=== PATIENT | female | born 1990 | race Caucasian/White ===

== ENCOUNTER → 2023-03-10 | Outpatient (CLI) | payer MEDICAID, SELFPAY ==
[2023-03-10 15:57] LABS: Estradiol 42.9 pg/mL; Follicle Stimulating Hormone 6.9 mIU/mL; Luteinizing Hormone 4.4 mIU/mL; Thyroid Stim Hormone (TSH) 2.05 uIU/mL (0.358-3.74)
== END | disposition home or self-care (01) ==
LOC: PAVLAB 14:51
PROVIDERS: Referring Provider Obstetrics & Gynecology; Visit Provider Obstetrics & Gynecology
DX: N93.9 Abnormal uterine and vaginal bleeding, unspecified (principal)
CPT/HCPCS: 36415; 82627; 82670; 83001; 83002; 84443; 82626

== ENCOUNTER → 2023-04-06 | Outpatient (CLI) | payer MEDICAID, SELFPAY ==
--- NOTE | 2023-04-06 08:57 | BI_ITS ---
MAMMOGRAPHY - BILATERAL DIAGNOSTIC REASON FOR EXAM: Female, 33 years old. Left axillary mass getting larger PERTINENT HISTORY: Aunt with breast cancer. TECHNIQUE: Digital examination. Mediolateral oblique (MLO) and craniocaudad (CC) views of both breasts were obtained, along with 3-D tomosynthesis. CAD: CAD was performed on this study. COMPARISON: None. Baseline examination. FINDINGS: Breast Composition: The breasts are heterogeneously dense, which may obscure small masses. There are no dominant masses or suspicious calcifications. No other significant abnormalities are identified. No mammographic evidence of abnormality. However, because patient has an enlarging left axillary mass, further evaluation of this mass with ultrasound is recommended. The right breast needs no specific follow-up BI/DIAG MAMM W/CAD, BILAT IMPRESSION: Further ultrasonographic evaluation recommended, as described above. Recall Side: Right Breast ASSESSMENT CATEGORY: BIRADS Category 0: Incomplete. Need additional imaging evaluation. A letter regarding these results will be sent to the patient by the facility within 30 days. FOLLOW UP RECOMMENDATION: Ultrasound Recommended. (I) Approximately 10% of breast cancers are not detected by mammography. A normal mammogram should not delay biopsy of a clinically suspicious abnormality. Electronically Signed: Fidel Spivey MD at 9:42 EDT ,
--- NOTE | 2023-04-06 08:57 | US_ITS ---
STUDY: ULTRASOUND BREAST - LEFT REASON FOR EXAM: Female, 33 years old. Palpable lump TECHNIQUE: Axial and longitudinal images of the LEFT breast were performed with a high resolution ultrasound transducer. # OF IMAGES: 22 COMPARISON: None. FINDINGS: LEFT Breast: Focused ultrasound of the left axilla demonstrates a lymph node that corresponds to the palpable lump measuring 1.5 x 0.8 x 0.8 cm. This is physiologic, and likely reactive. Since it is less than 1 cm in short axis dimension, no specific follow-up or intervention is needed. No suspicious enlarged bulky lymphadenopathy, no hyperemia or venous fluid collection. US/Breast Limited Unilateral IMPRESSION: Palpable lump corresponds to a physiologic lymph node. No suspicious sonographic findings ASSESSMENT CATEGORY: BIRADS Category 1: Negative. A letter regarding these results will be sent to the patient by the facility within 30 days. Electronically Signed: Fidel Spivey MD at 11:53 EDT ,
== END | disposition home or self-care (01) ==
LOC: OPBI 08:55
PROVIDERS: Referring Provider Obstetrics & Gynecology; Visit Provider Obstetrics & Gynecology
DX: R22.32 Localized swelling, mass and lump, left upper limb (principal)
CPT/HCPCS: 77062; 76642; 77066; G0279

== ENCOUNTER → 2023-07-25 | Outpatient (CLI) | payer MEDICAID, SELFPAY ==
[2023-07-27 22:06] LABS: Chlamydia By Nucleic Acid AMP Negative (Negative); Gonococcus By Nucleic Acid AMP Negative (Negative)
[2023-07-29 15:08] LABS: HPV APTIMA, High Risk Negative (Negative)
== END | disposition home or self-care (01) ==
LOC: LABSPEC 14:06
PROVIDERS: Referring Provider Registered Nurse; Visit Provider Registered Nurse
DX: Z34.90 Encounter for supervision of normal pregnancy, unspecified, unspecified trimester (principal)
CPT/HCPCS: 87086; 87088; 87491; 87591; 87624; 88175; G0145

== ENCOUNTER → 2023-08-05 | Outpatient (CLI) | payer MEDICAID, SELFPAY ==
[2023-08-05 11:21] LABS: Absolute Lymphocyte Count 2.61 X10^3/uL (0.83-4.51); Absolute Neutrophil Count 3.3 X10^3/uL (2.0-7.7); Basophil# 0.02 X10^3/uL; Basophil% 0.3 % (0-1); Eosinophil# 0.08 X10^3/uL; Eosinophils% 1.3 % (0-5); Hematocrit 39.3 % (37-47); Hemoglobin 13.2 g/dL (12.0-15.0); Lymphocyte # 2.61 X10^3/ul (0.83-4.51); Mean Corp Hgb Conc 33.6 g/dL (32-36); Mean Corpuscular Hgb 30.4 pg (27.0-32.0); Mean Corpuscular Volume 90.6 fL (81-99); Mean Platelet Vol. 9.9 fl (6.2-12.0); Monocyte# 0.38 X10^3/uL; NRBC Flagged by Analyzer 0 % (0-5); Neutrophil # 3.25 X10^3/uL (2.7-7.7); Neutrophil % 51.1 % (47-70); Platelet Count 191 K/mm3 (150-450); RBC Distribution Width CV 11.7 % (11.6-14.6); RBC Distribution Width SD 38.6 fl (35.1-43.9); Red Blood Count 4.34 M/mm3 (4.2-5.4); White Blood Count 6.4 K/mm3 (4.4-11.0)
[2023-08-05 11:40] LABS: NATERA MAILED SPECIMEN
[2023-08-05 12:20] LABS: HIV - WCH Non-Reactive (Nonreactive); Hepatitis B Surface Antigen Non-Reactive (Nonreactive); Hepatitis C Antibody Non-Reactive (Nonreactive); Rubella IgG Reactive (Nonreactive); Syphilis Antibodies Non-reactive
[2023-08-05 14:24] LABS: Hemoglobin A1c 4.3 % (3.8-5.6)
== END | disposition home or self-care (01) ==
LOC: LAB 10:37
PROVIDERS: Referring Provider Registered Nurse; Visit Provider Registered Nurse
DX: O99.210 Obesity complicating pregnancy, unspecified trimester (principal); Z3A.00 Weeks of gestation of pregnancy not specified
CPT/HCPCS: 36415; 83036; 85025; 86703; 86762; 86780; 86803; 86850; 86900; 86901; 87340

== ENCOUNTER → 2023-12-14 | Outpatient (CLI) | payer MEDICAID, SELFPAY ==
[2023-12-14 11:24] LABS: Absolute Lymphocyte Count 2.04 X10^3/uL (0.83-4.51); Absolute Neutrophil Count 5.4 X10^3/uL (2.0-7.7); Basophil# 0.02 X10^3/uL; Basophil% 0.3 % (0-1); Eosinophil# 0.05 X10^3/uL; Eosinophils% 0.6 % (0-5); Hematocrit 34.9 % (37-47); Hemoglobin 11.6 g/dL (12.0-15.0); Lymphocyte # 2.04 X10^3/ul (0.83-4.51); Lymphocyte % 25.6 % (19-41); Mean Corp Hgb Conc 33.2 g/dL (32-36); Mean Corpuscular Hgb 29.8 pg (27.0-32.0); Mean Corpuscular Volume 89.7 fL (81-99); Mean Platelet Vol. 10.1 fl (6.2-12.0); Monocyte# 0.45 X10^3/uL; Monocyte% 5.7 % (0-10); NRBC Flagged by Analyzer 0 % (0-5); Neutrophil # 5.35 X10^3/uL (2.7-7.7); Neutrophil % 67.2 % (47-70); Platelet Count 164 K/mm3 (150-450); RBC Distribution Width CV 12.3 % (11.6-14.6); Red Blood Count 3.89 M/mm3 (4.2-5.4)
[2023-12-14 12:11] LABS: Glucose Challenge Gest 1H 50g 114 mg/dL (70-140)
[2023-12-14 12:41] LABS: HIV - WCH Non-Reactive (Nonreactive); Syphilis Antibodies Non-reactive
--- OUTSIDE RECORDS SUMMARY | 2023-12-14 21:09 | XMS RPT_ITS | CCD ---
Author Name Unknown Address [address] [facility] [address] [place] [address] Organization [facility] Care Team Providers Care Crew Scheduler Name Role Phone Emory Massey CNP Primary Care Provider 1( [phone] Eveline Velasco MD Primary Care Provider Juwan Lyons Attending Unavailable Juwan Lyons Primary Care Unavailable Juwan Lyons Referring Unavailable Unavailable Primary Care Provider UnavailCHRISTINA Burks Referring Unavailable EMORY MASSEY Primary Care Unavailable EMORY MASSEY Primary Care Unavailable EMORY MASSEY Primary Care Unavailable JUWAN LYONS Attending Unavailable JUWAN LYONS Attending Unavailable HI POWER Referring Unavailab CANDELARIA Yu Primary Care Unavailable DUNCAN MARTINEZ Attending Unavailable Allergies Allergy Classification Reported Allergen(s) Allergy Type Date of Onset Reaction(s) Facility (5 sources) Azithromycin; Translations: [AZITHROMYCIN] Drug Allergy 11-06-2013 [facility] (5 sources) Cefaclor; Translations: [CEFACLOR] Drug Allergy 11-18-2005 [facility] Work Phone: (1 source) Clindamycin Drug Allergy 06-14-2019 [facility] Work Phone: (1 source) Clindamycin Drug Allergy 09-20-2022 [facility] Medications Current Medications Medication Drug Class(es) Dates Sig (Normalized) Sig (Original) doxycycline monohydrate 100 mg oral tablet (1 source) Tetracycline-cla ss Drug Start: 09-20-2022 End: 09-27-2022 take 1 tablet by mouth twice daily doxycycline monohydrate 100 mg tablet Indications: Sinobronchitis Take 1 tablet by mouth twice daily for 7 days. 14 tablet 0 09/20/2022 09/27/2022 Active Completed/Discontinued Medications Medication Drug Class(es) Dates Sig (Normalized) Sig (Original) ALPRAZolam (2 sources) Benzodiazepine ALPRAZOLAM (XANA X ORAL) Take by mouth. 0 Active Problems Active Problems Problem Classification Problem Date Documented Da te Episodic/Chronic Anxiety disorders (2 sources) Anxiety; Translations: [Anxiety disorder, unspecified] Onset: 04-14-2012 04-14-2012 Chronic Menstrual disorders (5 sources) Irregular periods; Translations: [Irregular menstruation, unspecified] Onset: 07-28-2022 Chronic Other acquired deformities (2 sources) Scoliosis deformity of spine; Translations: [Other forms of scoliosis, site unspecified] 03-20-2008 Chronic Other injuries and conditions due to external causes (1 source) Injury of left foot; Translations: [Unspecified injury of left foot, initial encounter] Episodic Other upper respiratory infections (1 source) Chronic sinusitis; Translations: [Chronic sinusitis, unspecified] Chronic Past or Other Problems Problem Classification Problem Date Documented Date Episodic/Chronic Allergic reactions (2 sources) Urticaria; Translations: [Urticaria, unspecified] Onset: 09-25-2007 09-25-2007 Episodic Cardiac dysrhythmias (1 source) Tachycardia; Translations: [Tachycardia, unspecified] Onset: 12-22-2017 Resolved: 06-07-2019 06-07-2019 Episodic Other complications of (1 source) Supervision of with other poor reproductive or obstetric history, unspecified trimester; Translations: [ with other poor obstetric history] Onset: 05-20-2016 Resolved: 06-07-2019 06-07-2019 Episodic Other complications of (1 source) H/O: ; Translations: [Supervision of with other poor reproductive or obstetric history, unspecified trimester] Onset: 05-20-2016 Resolved: 06-07-2019 06-07-2019 Episodic Other injuries and conditions due to external causes (1 source) Unspecified injury of left foot, initial encounter; Translations: [Foot injury, left, initial encounter] Onset: 03-29-2022 Episodic Other and delivery including normal (2 sources) Vaginal delivery; Translations: [Encounter for full-term uncomplicated delivery] Onset: 11-19-2016 Resolved: 06-07-2019 06-07-2019 Episodic Syncope (1 source) Near syncope; Translations: [Syncope and collapse] Onset: 12-22-2017 Resolved: 06-07-2019 06-07-2019 Episodic Results Test Name Value Interpretation Reference Range Facil ity Vital Signs Date Time Vital Sign Value Performing Clinician Abner zarco 09-20-2022 09:14-0500 Body temperature 99.61 [degF] Zaid Godinez HOME WEATHERIZING WORKER.CLINICAL DATA ASSISTANT Work Phone: [facility] 09-20-2022 09:14-0500 Body weight 78.47 kg Zaid Godinez HOME WEATHERIZING WORKER.CLINICAL DATA ASSISTANT Work Phone: [facility] 09-20-2022 09:14-0500 Diastolic blood pressure 72 mm[Hg] Zaid Godinez HOME WEATHERIZING WORKER.CLINICAL DATA ASSISTANT Work Phone: [facility] 09-20-2022 09:14-0500 Heart rate 105 /min Zaid Godinez HOME WEATHERIZING WORKER.CLINICAL DATA ASSISTANT Work Phone: [facility] 09-20-2022 09:14-0500 Respiratory rate 20 /min Zaid Godinez HOME WEATHERIZING WORKER.CLINICAL DATA ASSISTANT Work Phone: [facility] 09-20-2022 09:14-0500 SaO2% (BldA) [Mass fraction] 99 % Zaid Godinez HOME WEATHERIZING WORKER.CLINICAL DATA ASSISTANT Work Phone: [facility] 09-20-2022 09:14-0500 Systolic blood pressure 102 mm[Hg] Zaid Godinez HOME WEATHERIZING WORKER.CLINICAL DATA ASSISTANT Work Phone: [facility] 03-29-2022 16:31-0400 Body temperature 98.49 [degF] Christina Harvey HOME WEATHERIZING WORKER.CLINICAL DATA ASSISTANT Work Phone: [facility] 03-29-2022 16:31-0400 Body weight 80.2 kg Christina Harvey HOME WEATHERIZING WORKER.CLINICAL DATA ASSISTANT Work Phone: [facility] 03-29-2022 16:31-0400 Diastolic blood pressure 82 mm[Hg] Christina Harvey HOME WEATHERIZING WORKER.CLINICAL DATA ASSISTANT Work Phone: [facility] 03-29-2022 16:31-0400 Heart rate 95 /min Christina Harvey HOME WEATHERIZING WORKER.CLINICAL DATA ASSISTANT Work Phone: [facility] 03-29-2022 16:31-0400 Respiratory rate 20 /min Christina Harvey HOME WEATHERIZING WORKER.CLINICAL DATA ASSISTANT Work Phone: [facility] 03-29-2022 16:31-0400 SaO2% (BldA) [Mass fraction] 98 % Christina Harvey HOME WEATHERIZING WORKER.CLINICAL DATA ASSISTANT Work Phone: [facility] 03-29-2022 16:31-0400 Systolic blood pressure 124 mm[Hg] [facility] HOME WEATHERIZING WORKER.CLINICAL DATA ASSISTANT Work Phone: [facility] Encounters Encounter Date Encounter Type Care Provider Facility Start: 10-11-2023 End: 10-11-2023 [facility] Start: 10-25-2022 End: 10-25-2022 ambulatory JUWAN LYONS [facility] Start: 09-20-2022 End: 09-20-2022 [facility] Facility[facility] Start: 09-20-2022 End: 09-20-2022 Patient encounter procedure Zaidlacie Godinez HOME WEATHERIZING WORKER.CLINICAL DATA ASSISTANT Work Phone: [facility] Care Procedures Date Procedure Procedure Detail Performing Clinician Start: 10-25-2022 Follow-up visit Follow-up JUWAN LYONS Start: 07-28-2022 Assay of thyroid stimulating hormone tsh Juwan Lyons MD Work Phone: Start: 10-30-2018 Microscopic observat ion [Identifier] in Cervix by Cyto stain Juwan Lyons MD Work Phone: Plan of Treatment Date Care Activity Detail Author Start: 08-18-2022 End: 08-18-2022 Patient encounter procedure [facility] Start: 06-17-2022 Influenza vaccination [facility] Start: 05-17-2022 Influenza vaccination Flu vaccine (# 1) [facility] Start: 10-30-2021 Screening for malign ant neoplasm of cervix [facility] Start: 10-17-2021 DEPRESSION ASSESSMENT DEPRESSION ASS ESSMENT [facility] Start: 2020 HPV TESTING HPV TESTING [facility] Start: 2020 Screening for malign ant neoplasm of cervix HPV (without or with Pap) [facility] Start: 10-13-2016 DTaP/Tdap/Td vaccine (7 - Td or Tdap) DTaP/Tdap/Td vaccine (7 - Td or Tdap) [facility] Start: 10-13-2016 Urine microalbumin profile DTAP,TDAP,TD (7 - Td or Tdap) [facility] Start: 05-27-2016 PAP TESTING PAP TESTING [facility] Start: 2008 HEPATITIS C SCREENING HEPATITIS C SC REENING [facility] Start: 2008 HIV SCREENING HIV SCREENING [facility] Start: 2002 Adult depression screening assessment DEPRESSION SCREENING [facility] Start: 2002 Depression Screen Depression Screen [facility] Start: 1995 COVID-19 VACCINE (#1) COVID-19 VACCI NE (#1) [facility] Start: 1991 Varicella vaccine (1 of 2 - 2-dose childhood series) Varicella vaccine (1 of 2 - 2-dose childhood series) [facility] Start: 1990 COVID-19 Vaccine (#1) COVID-19 Vacci ne (#1) [facility] Immunizations Immunization Date Immunization Notes Care Provider Libra jose 10-13-2006 tetanus toxoid, reduced diphtheria toxoid, and acellular pertussis vaccine, adsorbed Christina Pendlebury HOME WEATHERIZING WORKER.[facility] Work Phone: [facility] Work Phone: 02-04-2003 hepatitis B vaccine, pediatric or pediatric/adolescent dosage Christina Pendlebury HOME WEATHERIZING WORKER.CLINICAL DATA ASSISTANT Work Phone: [facility] Work Phone: 07-05-2002 hepatitis B vaccine, pediatric or pediatric/adolescent dosage Christina Pendlebury HOME WEATHERIZING WORKER.CLINICAL DATA ASSISTANT Work Phone: [facility] Work Phone: 05-28-2002 hepatitis B vaccine, pediatric or pediatric/adolescent dosage Christina Pendlebury HOME WEATHERIZING WORKER.[facility] Work Phone: [facility] Work Phone: 05-28-2002 measles, mumps and rubella virus vaccine Christina Pendlebury HOME WEATHERIZING WORKER.[facility] Work Phone: [facility] Work Phone: 06-07-1994 diphtheria, tetanus toxoids and acellular pertussis vaccine Christina Pendlebury HOME WEATHERIZING WORKER.[facility] Work Phone: [facility] Work Phone: 06-07-1994 trivalent poliovirus vaccine, live, oral Christina Pendlebury HOME WEATHERIZING WORKER.[facility] Work Phone: [facility] Work Phone: 05-16-1992 diphtheria, tetanus toxoids and acellular pertussis vaccine Christina Pendlebury HOME WEATHERIZING WORKER.[facility] Work Phone: [facility] Work Phone: 05-16-1992 trivalent poliovirus vaccine, live, oral Christina Pendkorinbury HOME WEATHERIZING WORKER.[facility] Work Phone: [facility] Work Phone: 11-06-1991 haemophilus influenzae type b vaccine, HbOC conjugate [facility]adryan [facility] HOME WEATHERIZING WORKER.[facility] Work Phone: [facility] Work Phone: 08-10-1991 DTaP-Haemophilus influenzae type b conjugate vaccine [facility] HOME WEATHERIZING WORKER.[facility] Work Phone: [facility] Work Phone: 08-10-1991 measles, mumps and rubella virus vaccine Christina Sladelebury HOME WEATHERIZING WORKER.[facility] Work Phone: [facility] Work Phone: 04-26-1991 DTaP-Haemophilus influenzae type b conjugate vaccine Christinaadryan Sladelebury HOME WEATHERIZING WORKER.[facility] Work Phone: [facility] Work Phone: 04-26-1991 trivalent poliovirus vaccine, live, oral Christina Pendlebury HOME WEATHERIZING WORKER.[facility] Work Phone: [facility] Work Phone: 1990 DTaP-Haemophilus influenzae type b conjugate vaccine Christina Wes HOME WEATHERIZING WORKER.CLINICAL DATA ASSISTANT Work Phone: [facility] Work Phone: 1990 trivalent poliovirus vaccine, live, oral Christina Wes HOME WEATHERIZING WORKER.CLINICAL DATA ASSISTANT Work Phone: [facility] Work Phone: NEGATED: Highlighted row has not occurred!05-29-2018 measles, mumps and rubella virus vaccine Juwan Lyons MD Work Phone: [facility] NEGATED: Highlighted row has not occurred!05-29-2018 tetanus toxoid, reduced diphtheria toxoid, and acellular pertussis vaccine, adsorbed Juwan Lyons MD Work Phone: [facility] Work Phone: Payers Date Payer Category Payer Medicaid [employer] [employer] [id number] 2020-Present [phone] [address] [place] [address] Medicaid [id number] 2020 Medicaid [employer] [employer] [place] [employer] [employer] [id number] 2020-Present [phone] [place], [place] [id number] Medicaid [id number] 2020 Unknown [id number] 1990 Unknown [id number] 1990 Unknown [id number] Unknown Social History Date Type Detail Facility Start: 05-27-2011 End: 05-13-2016 Tobacco smoking status ARIS Never smoked tobacco [facility] Start: 03-29-2022 End: 09-20-2022 Alcohol intake Current drinker of alcohol (finding) [facility] Start: 11-06-2013 History SDOH Alcohol Comment Occassional [facility] Start: 1990 Sex Assigned At Not on file [facility] Start: 05-27-2011 End: 05-13-2016 Tobacco use and exposure Smokeless tobacco non-user [facility] Work Phone: Start: 07-28-2022 Alcohol intake Current non-dr trim setter helper of alcohol (finding) [facility] Work Phone: Start: 09-10-2022 End: 09-20-2022 Exposure to SARS-CoV-2 (event) Not sure [facility] Work Phone: Progress note 09-20-2022 Note Date & Type Note Facility 09-20-2022 Note HNO ID: [id number] Author: Zaid Godinez APRN.CLINICAL DATA ASSISTANT Service: ? Author Type: Nurse Practitioner Type: Progress Notes Filed: 09/20/2022 10:02 AM Note Text: Subjective HPI HPI Flavia Qiu is a 32 year old female who presents today for CC of cough, congestion. This started 2 weeks ago. Has tried otc medication without relief. Symptoms are worsened by nothing. Risk factors multiple sick exposures at home. Denies possibility of being . nonsmoker. .Patient presents with: Chest Congestion: Cough, ROCHA, fever x 2 weeks PAST MEDICAL HISTORY Diagnosis Date Anxiety 04/14/2012 Other kyphoscoliosis and scoliosis Panic attacks PAST SURGICAL HISTORY Procedure Laterality Date ADENOIDECTOMY PRIMARY Adenoidectomy TONSILLECTOMY PRIMARY/SECONDARY Tonsillectomy ALLERGIES Ceclor [Cefaclor], Clindamycin, and Zithromax [Azithromycin] MEDICATIONS predniSONE (DELTASONE) 20 mg tablet Take 2 tablets by mouth once daily for 5 days. doxycycline monohydrate 100 mg tablet Take 1 tablet by mouth twice daily for 7 days. amoxicillin (POLYMOX, AMOXIL) 500 mg capsule TAKE 1 CAPSULE BY MOUTH EVERY 8 HOURS UNTIL GONE citalopram hydrobromide (CELEXA ORAL) Take by mouth. (Patient not taking: Reported on 03/29/2022 ) triamcinolone acetonide (KENALOG) 0.1 % cream Apply 1 application to affected area three times daily. Apply sparingly to area for rash/itching. (Patient not taking: Reported on 01/09/2019 ) PROMETHAZINE HCL (PHENERGAN ORAL) Take by mouth. (Patient not taking: Reported on 03/29/2022 ) ALPRAZOLAM (XANAX ORAL) Take by mouth. (Patient not taking: Reported on 03/29/2022 ) gentamicin (GARAMYCIN) 0.3 % ophthalmic solution Use 1 Drop in the left eye every 4 hours. (Patient not taking: Reported on 03/29/2022 ) buPROPion XL 150 mg 24 hr tablet Take 150 mg by mouth once daily. (Patient not taking: Reported on 03/29/2022 ) Etonogestrel-Ethinyl Estradiol (NUVARING) 0.12-0.015 mg/24 hr vaginal ring Use 1 Each vaginally as directed. Insert vaginally and leave in place for 3 consecutive weeks, then remove for 1 week. (Patient not taking: Reported on 03/29/2022 ) LORazepam (ATIVAN) 0.5 mg Tab Take 1 tablet by mouth every 6 hours as needed. (Patient not taking: Reported on 03/29/2022) FAMILY HISTORY Problem Relation Age of Onset Emphysema Paternal Grandfather Diabetes Paternal Grandfather Cancer Father skin/ear Social History Tobacco Use Smoking status: Never Smokeless tobacco: Never Substance Use Topics Alcohol use: Yes Comment: Occassional Drug use: No Review of Systems Constitutional: Positive for chills, fever and malaise/fatigue. HENT: Positive for congestion and sore throat. Negative for ear pain and nosebleeds. Respiratory: Positive for cough. Negative for shortness of breath and wheezing. Cardiovascular: Negative for chest pain. Gastrointestinal: Negative for diarrhea and vomiting. Musculoskeletal: Negative for neck pain. Skin: Negative for itching and rash. Neurological: Positive for headaches. Objective Physical Exam Constitutional: General: She is not in acute distress. Appearance: She is not toxic-appearing or diaphoretic. HENT: Head: Normocephalic and atraumatic. Nose: Nose normal. Mouth/Throat: Pharynx: Uvula midline. No pharyngeal swelling, oropharyngeal exudate, posterior oropharyngeal erythema or uvula swelling. Eyes: General: Lids are normal. No scleral icterus. Right eye: No discharge. Left eye: No discharge. Conjunctiva/sclera: Conjunctivae normal. Pupils: Pupils are equal, round, and reactive to light. Neck: Trachea: Trachea normal. Cardiovascular: Rate and Rhythm: Normal rate and regular rhythm. Heart sounds: Normal heart sounds. Pulmonary: Effort: Pulmonary effort is normal. Breath sounds: Normal breath sounds. Musculoskeletal: Cervical back: Normal range of motion and neck supple. Lymphadenopathy: Cervical: No cervical adenopathy. Right cervical: No superficial cervical adenopathy. Left cervical: No superficial cervical adenopathy. Skin: Findings: No rash. Neurological: Mental Status: She is alert and oriented to person, place, and time. ASSESSMENT/PLAN: 1. Sinobronchitis - ICD9: 473.9, 490, ICD10: J32.9, J40 Start prednisone, take for 3-5 days if no better/worse fill/take atb rx. - Supportive care with plenty of fluids, rest, and analgesia prn. - Follow up in 3-5 days if symptoms persist or worsen. -If you experience chest pain/shortness of breath go to ER -declines flu/covid testing. - PREDNISONE 20 MG TABLET - DOXYCYCLINE MONOHYDRATE 100 MG TABLET Zaid Godinez APRN.[facility] History of Present illness Narrative 09-20-2022 Zaid Godinez APRN.[facility] - 09/20/2022 9:58 AM EST Note Date & Type Note Facility 09-20-2022 History of Presen t illness Narrative Subjective HPI HPI Flavia Qiu is a 32 year old female who presents today for CC of cough, congestion. This started 2 weeks ago. Has tried otc medication without relief. Symptoms are worsened by nothing. Risk factors multiple sick exposures at home. Denies possibility of being . nonsmoker. .Patient presents with: Chest Congestion: Cough, ROCHA, fever x 2 weeks PAST MEDICAL HISTORY Diagnosis Date Anxiety 04/14/2012 Other kyphoscoliosis and scoliosis Panic attacks PAST SURGICAL HISTORY Procedure Laterality Date ADENOIDECTOMY PRIMARY <AGE 12 age 6 Adenoidectomy TONSILLECTOMY PRIMARY/SECONDARY <AGE 12 age 6 Tonsillectomy ALLERGIES Ceclor [Cefaclor], Clindamycin, and Zithromax [Azithromycin] MEDICATIONS predniSONE (DELTASONE) 20 mg tablet Take 2 tablets by mouth once daily for 5 days. doxycycline monohydrate 100 mg tablet Take 1 tablet by mouth twice daily for 7 days. amoxicillin (POLYMOX, AMOXIL) 500 mg capsule TAKE 1 CAPSULE BY MOUTH EVERY 8 HOURS UNTIL GONE citalopram hydrobromide (CELEXA ORAL) Take by mouth. (Patient not taking: Reported on 03/29/2022 ) triamcinolone acetonide (KENALOG) 0.1 % cream Apply 1 application to affected area three times daily. Apply sparingly to area for rash/itching. (Patient not taking: Reported on 01/09/2019 ) PROMETHAZINE HCL (PHENERGAN ORAL) Take by mouth. (Patient not taking: Reported on 03/29/2022 ) ALPRAZOLAM (XANAX ORAL) Take by mouth. (Patient not taking: Reported on 03/29/2022 ) gentamicin (GARAMYCIN) 0.3 % ophthalmic solution Use 1 Drop in the left eye every 4 hours. (Patient not taking: Reported on 03/29/2022 ) buPROPion XL 150 mg 24 hr tablet Take 150 mg by mouth once daily. (Patient not taking: Reported on 03/29/2022 ) Etonogestrel-Ethinyl Estradiol (NUVARING) 0.12-0.015 mg/24 hr vaginal ring Use 1 Each vaginally as directed. Insert vaginally and leave in place for 3 consecutive weeks, then remove for 1 week. (Patient not taking: Reported on 03/29/2022 ) LORazepam (ATIVAN) 0.5 mg Tab Take 1 tablet by mouth every 6 hours as needed. (Patient not taking: Reported on 03/29/2022) FAMILY HISTORY Problem Relation Age of Onset Emphysema Paternal Grandfather Diabetes Paternal Grandfather Cancer Father skin/ear Social History Tobacco Use Smoking status: Never Smokeless tobacco: Never Substance Use Topics Alcohol use: Yes Comment: Occassional Drug use: No Review of Systems Constitutional: Positive for chills, fever and malaise/fatigue. HENT: Positive for congestion and sore throat. Negative for ear pain and nosebleeds. Respiratory: Positive for cough. Negative for shortness of breath and wheezing. Cardiovascular: Negative for chest pain. Gastrointestinal: Negative for diarrhea and vomiting. Musculoskeletal: Negative for neck pain. Skin: Negative for itching and rash. Neurological: Positive for headaches. Objective Physical Exam Constitutional: General: She is not in acute distress. Appearance: She is not toxic-appearing or diaphoretic. HENT: Head: Normocephalic and atraumatic. Nose: Nose normal. Mouth/Throat: Pharynx: Uvula midline. No pharyngeal swelling, oropharyngeal exudate, posterior oropharyngeal erythema or uvula swelling. Eyes: General: Lids are normal. No scleral icterus. Right eye: No discharge. Left eye: No discharge. Conjunctiva/sclera: Conjunctivae normal. Pupils: Pupils are equal, round, and reactive to light. Neck: Trachea: Trachea normal. Cardiovascular: Rate and Rhythm: Normal rate and regular rhythm. Heart sounds: Normal heart sounds. Pulmonary: Effort: Pulmonary effort is normal. Breath sounds: Normal breath sounds. Musculoskeletal: Cervical back: Normal range of motion and neck supple. Lymphadenopathy: Cervical: No cervical adenopathy. Right cervical: No superficial cervical adenopathy. Left cervical: No superficial cervical adenopathy. Skin: Findings: No rash. Neurological: Mental Status: She is alert and oriented to person, place, and time. ASSESSMENT/PLAN: 1. Sinobronchitis - ICD9: 473.9, 490, ICD10: J32.9, J40 Start prednisone, take for 3-5 days if no better/worse fill/take atb rx. - Supportive care with plenty of fluids, rest, and analgesia prn. - Follow up in 3-5 days if symptoms persist or worsen. -If you experience chest pain/shortness of breath go to ER -declines flu/covid testing. - PREDNISONE 20 MG TABLET - DOXYCYCLINE MONOHYDRATE 100 MG TABLET Zaid Godinez APRN.CLINICAL DATA ASSISTANT documented in this encounter [facility] Progress note 07-06-2022 Note Date & Type Note Facility 07-06-2022 Note HNO ID: [id number] Author: Simi Patel APRN.[facility] Service: ? Author Type: Nurse Practitioner Type: Progress Notes Filed: 07/06/2022 2:53 PM Note Text: This note was created using Dry Luber[employer]. Terry Qiu is a 32 year old female. 32 year old female Acute onset last night. Left breast Noted last night in shower. Left upper breast area Endorses a lump, painful and red. +warmth Denies breast feeding Denies trauma or injury Denies nipple drainage or inverted nipples. Denies PCP coverage. She is being seen by [facility], July 28 for routine exam. Don't want to wait if its something serious States that she recently shaved The history is provided by the patient. No denture processor was used. Rash This is a new problem. The current episode started yesterday. The problem is unchanged. Location: left breasdt. The rash is characterized by pain and redness. It is unknown if there was an exposure to a precipitant. Pertinent negatives include no anorexia, congestion, cough, diarrhea, eye pain, facial edema, fatigue, fever, joint pain, nail changes, rhinorrhea, shortness of breath, sore throat or vomiting. Past treatments include nothing. The treatment provided no relief. There is no history of allergies, asthma, eczema or varicella. PAST MEDICAL HISTORY Diagnosis Date Anxiety 04/14/2012 Other kyphoscoliosis and scoliosis Panic attacks PAST SURGICAL HISTORY Procedure Laterality Date ADENOIDECTOMY PRIMARY Adenoidectomy TONSILLECTOMY PRIMARY/SECONDARY Tonsillectomy ALLERGIES Ceclor [Cefaclor] and Zithromax [Azithromycin] MEDICATIONS doxycycline monohydrate 100 mg tablet Take 1 tablet by mouth twice daily for 5 days. amoxicillin (POLYMOX, AMOXIL) 500 mg capsule TAKE 1 CAPSULE BY MOUTH EVERY 8 HOURS UNTIL GONE citalopram hydrobromide (CELEXA ORAL) Take by mouth. (Patient not taking: Reported on 03/29/2022 ) triamcinolone acetonide (KENALOG) 0.1 % cream Apply 1 application to affected area three times daily. Apply sparingly to area for rash/itching. (Patient not taking: Reported on 01/09/2019 ) PROMETHAZINE HCL (PHENERGAN ORAL) Take by mouth. (Patient not taking: Reported on 03/29/2022 ) ALPRAZOLAM (XANAX ORAL) Take by mouth. (Patient not taking: Reported on 03/29/2022 ) gentamicin (GARAMYCIN) 0.3 % ophthalmic solution Use 1 Drop in the left eye every 4 hours. (Patient not taking: Reported on 03/29/2022 ) buPROPion XL 150 mg 24 hr tablet Take 150 mg by mouth once daily. (Patient not taking: Reported on 03/29/2022 ) Etonogestrel-Ethinyl Estradiol (NUVARING) 0.12-0.015 mg/24 hr vaginal ring Use 1 Each vaginally as directed. Insert vaginally and leave in place for 3 consecutive weeks, then remove for 1 week. (Patient not taking: Reported on 03/29/2022 ) LORazepam (ATIVAN) 0.5 mg Tab Take 1 tablet by mouth every 6 hours as needed. (Patient not taking: Reported on 03/29/2022) FAMILY HISTORY Problem Relation Age of Onset Emphysema Paternal Grandfather Diabetes Paternal Grandfather Cancer Father skin/ear Social History Tobacco Use Smoking status: Never Smokeless tobacco: Never Substance Use Topics Alcohol use: Yes Comment: Occassional Drug use: No Review of Systems Constitutional: Negative for fatigue and fever. HENT: Negative for congestion, rhinorrhea and sore throat. Eyes: Negative for pain. Respiratory: Negative for cough and shortness of breath. Cardiovascular: Negative for chest pain, palpitations and leg swelling. Gastrointestinal: Negative for anorexia, diarrhea and vomiting. Musculoskeletal: Negative for arthralgias, back pain, gait problem and joint pain. Skin: Positive for color change and rash. Negative for nail changes. Allergic/Immunologic: Negative for environmental allergies, food allergies and immunocompromised state. Neurological: Negative for dizziness and facial asymmetry. Hematological: Negative for adenopathy. Does not bruise/bleed easily. Psychiatric/Behavioral: Negative for agitation and behavioral problems. Objective BP 110/70 Pulse 80 Temp 37.3 ?C (99.2 ?F) Resp 16 Wt 77.6 kg (171 lb) LMP 01/29/2015 SpO2 98% BMI 31.03 kg/m? Physical Exam Vitals and nursing note reviewed. Constitutional: General: She is not in acute distress. Appearance: Normal appearance. She is normal weight. She is not ill-appearing, toxic-appearing or diaphoretic. HENT: Head: Normocephalic and atraumatic. Right Ear: Ear canal and external ear normal. Left Ear: Ear canal and external ear normal. Nose: Nose normal. No congestion or rhinorrhea. Mouth/Throat: Mouth: Mucous membranes are moist. Pharynx: No oropharyngeal exudate or posterior oropharyngeal erythema. Eyes: General: Right eye: No discharge. Left eye: No discharge. Extraocular Movements: Extraocular movements intact. Conjunctiva/sclera: Conjunctivae normal. Pupils: Pupils are equal, round, and (more content not included)... [facility] Progress note 03-29-2022 Note Date & Type Note Facility 03-29-2022 Note HNO ID: [id number] Author: RT Andrew(R) Service: ? Author Type: Reports Developer Type: Progress Notes Filed: 03/29/2022 4:59 PM Note Text: Radiology Service Progress Note PATIENT NAME: Flavia Qiu DATE OF SERVICE: March 29, 2022 TIME: 4:48 PM PATIENT IDENTITY VERIFICATION COMPLETED USING TWO (2) IDENTIFIERS: Name and Date of confirmed by patient verbally. FALL SCREENING: Has the patient had 2 falls in the last year or 1 fall with injury or currently using an Ambulatory Assistive Device (Walker, Cane, Wheelchair, Crutches, etc.)? No PATIENT GENDER DATA: Female. status: : No status: NO. PATIENT RELEVANT IMPLANT DATA REVIEWED: Yes RADIOLOGY DEPARTMENT: General X-ray: Exam(s) Completed: Lower Extremity X-Ray(s): Foot, Left PERIPHERAL IV DATA: Not applicable SIGNED BY: RT Andrew(R) March 29, 2022 4:48 PM [facility] Progress note 03-29-2022 Note Date & Type Note Facility 03-29-2022 Note HNO ID: [id number] Author: Christina Harvey APRN.CLINICAL DATA ASSISTANT Service: ? Author Type: Nurse Practitioner Type: Progress Notes Filed: 03/29/2022 5:16 PM Note Text: Subjective HPI Nontoxic-appearing female presents urgent care chief complaint left foot pain. Duration of symptoms 5 days. Associated symptoms left foot pain and swelling. Patient states she is third toe 5 days ago getting out of the shower. Presents today due to a consistent pain and increased swelling. Patient states she did go to [place] over the weekend where she did a lot of walking. Does not know if this exacerbated her injury. Presents today for evaluation. Has not use any OTC medications. Limited pain at rest increased pain with walking. No numbness no tingling no decreased sensation denies history of previous fractures or injuries. Denies chance of is not breast-feeding. Past medical history prescription medication use allergies reviewed. .Patient presents with: Pain (foot): L foot pain and swelling x5 days, stubbed toe PAST MEDICAL HISTORY Diagnosis Date - Anxiety 04/14/2012 - Other kyphoscoliosis and scoliosis - Panic attacks PAST SURGICAL HISTORY Procedure Laterality Date - ADENOIDECTOMY PRIMARY Adenoidectomy - TONSILLECTOMY PRIMARY/SECONDARY Tonsillectomy ALLERGIES Ceclor [Cefaclor] and Zithromax [Azithromycin] MEDICATIONS amoxicillin (POLYMOX, AMOXIL) 500 mg capsule TAKE 1 CAPSULE BY MOUTH EVERY 8 HOURS UNTIL GONE citalopram hydrobromide (CELEXA ORAL) Take by mouth. triamcinolone acetonide (KENALOG) 0.1 % cream Apply 1 application to affected area three times daily. Apply sparingly to area for rash/itching. PROMETHAZINE HCL (PHENERGAN ORAL) Take by mouth. ALPRAZOLAM (XANAX ORAL) Take by mouth. gentamicin (GARAMYCIN) 0.3 % ophthalmic solution Use 1 Drop in the left eye every 4 hours. buPROPion XL 150 mg 24 hr tablet Take 150 mg by mouth once daily. Etonogestrel-Ethinyl Estradiol (NUVARING) 0.12-0.015 mg/24 hr vaginal ring Use 1 Each vaginally as directed. Insert vaginally and leave in place for 3 consecutive weeks, then remove for 1 week. LORazepam (ATIVAN) 0.5 mg Tab Take 1 tablet by mouth every 6 hours as needed. FAMILY HISTORY Problem Relation Age of Onset - Emphysema Paternal Grandfather - Diabetes Paternal Grandfather - Cancer Father skin/ear Social History Tobacco Use - Smoking status: Never Smoker - Smokeless tobacco: Never Used Substance Use Topics - Alcohol use: Yes Comment: Occassional - Drug use: No BP 124/82 Pulse 95 Temp 36.9 ?C (98.5 ?F) Resp 20 Wt 80.2 kg (176 lb 12.8 oz) LMP 01/29/2015 SpO2 98% BMI 32.08 kg/m? Review of Systems Constitutional: Negative for chills, fever and malaise/fatigue. HENT: Negative for congestion, ear discharge, ear pain, sinus pain and sore throat. Eyes: Negative for blurred vision, pain, discharge and redness. Respiratory: Negative for cough, hemoptysis, sputum production, shortness of breath, wheezing and stridor. Cardiovascular: Negative for chest pain. Gastrointestinal: Negative for abdominal pain, diarrhea, nausea and vomiting. Musculoskeletal: Negative for myalgias. Skin: Negative for itching and rash. Neurological: Negative for dizziness and headaches. Objective Physical Exam Constitutional: General: She is not in acute distress. Appearance: She is not diaphoretic. HENT: Head: Normocephalic. Mouth/Throat: Mouth: Mucous membranes are moist. Pharynx: Oropharynx is clear. No oropharyngeal exudate or posterior oropharyngeal erythema. Eyes: Conjunctiva/sclera: Conjunctivae normal. Pupils: Pupils are equal, round, and reactive to light. Cardiovascular: Rate and Rhythm: Normal rate and regular rhythm. Heart sounds: Normal heart sounds. Pulmonary: Effort: Pulmonary effort is normal. No tachypnea, accessory muscle usage or respiratory distress. Breath sounds: Normal breath sounds. No stridor. Abdominal: Palpations: Abdomen is soft. Tenderness: There is no abdominal tenderness. Musculoskeletal: Cervical back: Normal range of motion and neck supple. No rigidity or tenderness. Left lower leg: Normal. Left ankle: Normal. Left Achilles Tendon: Normal. Left foot: Normal range of motion and normal capillary refill. Swelling, tenderness and bony tenderness present. No deformity or crepitus. Normal pulse. Comments: Pain with palpation over dorsal aspect of left foot. No breaks in skin. No erythema. Neurovascular intact. Lymphadenopathy: Cervical: No cervical adenopathy. Skin: General: Skin is warm and dry. Neurological: Mental Status: She is alert and oriented to person, place, and time. ASSESSMENT/PLAN: 1. Foot injury, left, initial encounter - ICD9: 959.7, ICD10: S99.922A - XR FOOT GENERAL 3V AP/LAT/OBL LEFT IMPRESSION: ? No radiographic evidence of acute osseous injury No fractures noted on x-ray. Suspicious of contusion/sprain conservat (more content not included)... [facility] History of Present illness Narrative 03-29-2022 Christina Harvey APRN.CLINICAL DATA ASSISTANT - 03/29/2022 4:44 PM EDT Note Date & Type Note Facility 03-29-2022 History of Presen t illness Narrative Subjective HPI Nontoxic-appearing female presents urgent care chief complaint left foot pain. Duration of symptoms 5 days. Associated symptoms left foot pain and swelling. Patient states she is third toe 5 days ago getting out of the shower. Presents today due to a consistent pain and increased swelling. Patient states she did go to [place] over the weekend where she did a lot of walking. Does not know if this exacerbated her injury. Presents today for evaluation. Has not use any OTC medications. Limited pain at rest increased pain with walking. No numbness no tingling no decreased sensation denies history of previous fractures or injuries. Denies chance of is not breast-feeding. Past medical history prescription medication use allergies reviewed. .Patient presents with: Pain (foot): L foot pain and swelling x5 days, stubbed toe PAST MEDICAL HISTORY Diagnosis Date Anxiety 04/14/2012 Other kyphoscoliosis and scoliosis Panic attacks PAST SURGICAL HISTORY Procedure Laterality Date ADENOIDECTOMY PRIMARY <AGE 12 age 6 Adenoidectomy TONSILLECTOMY PRIMARY/SECONDARY <AGE 12 age 6 Tonsillectomy ALLERGIES Ceclor [Cefaclor] and Zithromax [Azithromycin] MEDICATIONS amoxicillin (POLYMOX, AMOXIL) 500 mg capsule TAKE 1 CAPSULE BY MOUTH EVERY 8 HOURS UNTIL GONE citalopram hydrobromide (CELEXA ORAL) Take by mouth. triamcinolone acetonide (KENALOG) 0.1 % cream Apply 1 application to affected area three times daily. Apply sparingly to area for rash/itching. PROMETHAZINE HCL (PHENERGAN ORAL) Take by mouth. ALPRAZOLAM (XANAX ORAL) Take by mouth. gentamicin (GARAMYCIN) 0.3 % ophthalmic solution Use 1 Drop in the left eye every 4 hours. buPROPion XL 150 mg 24 hr tablet Take 150 mg by mouth once daily. Etonogestrel-Ethinyl Estradiol (NUVARING) 0.12-0.015 mg/24 hr vaginal ring Use 1 Each vaginally as directed. Insert vaginally and leave in place for 3 consecutive weeks, then remove for 1 week. LORazepam (ATIVAN) 0.5 mg Tab Take 1 tablet by mouth every 6 hours as needed. FAMILY HISTORY Problem Relation Age of Onset Emphysema Paternal Grandfather Diabetes Paternal Grandfather Cancer Father skin/ear Social History Tobacco Use Smoking status: Never Smoker Smokeless tobacco: Never Used Substance Use Topics Alcohol use: Yes Comment: Occassional Drug use: No BP 124/82 Pulse 95 Temp 36.9 C (98.5 F) Resp 20 Wt 80.2 kg (176 lb 12.8 oz) LMP 01/29/2015 SpO2 98% BMI 32.08 kg/m Review of Systems Constitutional: Negative for chills, fever and malaise/fatigue. HENT: Negative for congestion, ear discharge, ear pain, sinus pain and sore throat. Eyes: Negative for blurred vision, pain, discharge and redness. Respiratory: Negative for cough, hemoptysis, sputum production, shortness of breath, wheezing and stridor. Cardiovascular: Negative for chest pain. Gastrointestinal: Negative for abdominal pain, diarrhea, nausea and vomiting. Musculoskeletal: Negative for myalgias. Skin: Negative for itching and rash. Neurological: Negative for dizziness and headaches. Objective Physical Exam Constitutional: General: She is not in acute distress. Appearance: She is not diaphoretic. HENT: Head: Normocephalic. Mouth/Throat: Mouth: Mucous membranes are moist. Pharynx: Oropharynx is clear. No oropharyngeal exudate or posterior oropharyngeal erythema. Eyes: Conjunctiva/sclera: Conjunctivae normal. Pupils: Pupils are equal, round, and reactive to light. Cardiovascular: Rate and Rhythm: Normal rate and regular rhythm. Heart sounds: Normal heart sounds. Pulmonary: Effort: Pulmonary effort is normal. No tachypnea, accessory muscle usage or respiratory distress. Breath sounds: Normal breath sounds. No stridor. Abdominal: Palpations: Abdomen is soft. Tenderness: There is no abdominal tenderness. Musculoskeletal: Cervical back: Normal range of motion and neck supple. No rigidity or tenderness. Left lower leg: Normal. Left ankle: Normal. Left Achilles Tendon: Normal. Left foot: Normal range of motion and normal capillary refill. Swelling, tenderness and bony tenderness present. No deformity or crepitus. Normal pulse. Comments: Pain with palpation over dorsal aspect of left foot. No breaks in skin. No erythema. Neurovascular intact. Lymphadenopathy: Cervical: No cervical adenopathy. Skin: General: Skin is warm and dry. Neurological: Mental Status: She is alert and oriented to person, place, and time. ASSESSMENT/PLAN: 1. Foot injury, left, initial encounter - ICD9: 959.7, ICD10: S99.922A - XR FOOT GENERAL 3V AP/LAT/OBL LEFT IMPRESSION: No radiographic evidence of acute osseous injury No fractures noted on x-ray. Suspicious of contusion/sprain conservative treatment at this time. Patient was educated on supportive therapies. Patient will follow up with primary care provider as needed. Patient was instructed to immediately proceed to emergency room for any new, worsening, or symptoms lasting longer than anticipated. The patient's clinical presentation is otherwise unremarkable at this time. Based on exam and clinical finding, the patient is stable for discharge. Plan of care was discussed with patient. Patient verbalizes understanding and agrees to plan of care. This note was generated using Xer[employer] software. It may contain errors in wording, punctuation, or spelling. Christina Harvey APRN.REINA documented in this encounter [facility] Evaluation note Note Date & Type Note Facility documented in this encounter [facility] Evaluation note Note Date & Type Note [facility] Evaluation note Note Date & Type Note Facility documented in this encounter [facility] Reason for referral (narrative) Diagnostic Procedure Only (Urgent) - Closed Note Date & Type Note Facility Referral ID Status Reason Start Date Expiration Date V isits Requested Visits Authorized [id number] Closed Auto-Generate d Referral 03/29/2022 04/28/2023 1 1 [facility] Summary Purpose Family History No Family History Records FoundNo Family History Records FoundNo Family History Records FoundNo Family History Records FoundNo Family History Records Found Advance Directives No Advanced Directives Records FoundLatest Code Status on File Code Status Date Activated Date Inactivated Comments Full Code 05/28/2018 10:37 PM 05/30/2018 2:15 PM Full Code 05/28/2018 8:39 AM 05/28/2018 10:37 PM Full Code 11/19/2016 6:49 PM 11/21/2016 2:36 PM Full Code 11/19/2016 8:36 AM 11/19/2016 9:24 AM Full Code 11/19/2016 4:51 AM 11/19/2016 8:36 AM Additional Source Comments INFORMATION SOURCE (unrecogn ized section and content) DATE CREATED AUTHOR AUTHOR'S ORGANIZ ATION 08/09/2022 [facility] DATE CREATED AUTHOR AUTHOR'S ORGANIZ ATION 09/20/2022 [facility] DATE CREATED AUTHOR AUTHOR'S ORGANIZ ATION 10/31/2022 [facility] DATE CREATED AUTHOR AUTHOR'S ORGANIZ ATION 10/13/2023 [facility] Source Comments (unrecognize d section and content) In the event this informatio n is protected by the Federal Confidentiality of Alcohol and Drug Abuse Patient Records regulations: The Federal rules restrict any use of the information to criminally investigate or prosecute any alcohol or drug abuse patient.[facility] the event this information is protected by the Federal Confidentiality of Alcohol and Drug Abuse Patient Records regulations: The Federal rules restrict any use of the information to criminally investigate or prosecute any alcohol or drug abuse patient.[facility] Reason for Visit (unrecogniz ed section and content) Reason Comments Chest Congestion Cough, ROCHA, fever x 2 weeks Care Teams (unrecognized sec tion and content) Crew Scheduler Relationship Specialty Start Date End Date Eveline Velasco MD [address] [place] [address], [address] [place], [place] [id number] PCP - General 08/20/16 FOR RECORDS PERTAINING TO PATIENTS WHO ARE OR HAVE BEEN ENROLLED IN A CHEMICAL DEPENDENCY/SUBSTANCEABUSE PROGRAM, SOME INFORMATION MAY BE OMITTED. This clinical summary was aggregated from multiple sources. Caution should be exercised in using it in the provision of clinical care. This summary normalizes information from multiple sources, and as a consequence, information in this document may materially change the coding, format and clinical context of patient data. In addition, data may be omitted in some cases. CLINICAL DECISIONS SHOULD BE BASED ON THE PRIMARY CLINICAL RECORDS. [facility]. provides no warranty or guarantee of the accuracy or completeness of information in this document.
== END | disposition home or self-care (01) ==
PROVIDERS: Referring Provider Obstetrics & Gynecology; Visit Provider Obstetrics & Gynecology
DX: O09.92 Supervision of high risk pregnancy, unspecified, second trimester (principal); Z3A.00 Weeks of gestation of pregnancy not specified
CPT/HCPCS: 36415; 82950; 85025; 86703; 86780

== ENCOUNTER → 2024-02-01 | Outpatient (CLI) | payer MEDICAID, SELFPAY ==
--- NOTE | 2024-02-01 12:27 | US_ITS ---
STUDY: SECOND AND THIRD TRIMESTER OBSTETRICAL ULTRASOUND - LIMITED REASON FOR EXAM: Female, 33 years old, evaluate growth LMP: 05/24/2023 PRIOR ULTRASOUND: No relevant prior comparison study available TECHNIQUE: Transabdominal TECHNICAL QUALITY: Adequate. FINDINGS: There is a single intrauterine fetus. The fetus is in a cephalic presentation. There is demonstrated cardiac activity with a heart rate of 131 bpm. There is a normal amniotic fluid volume. The largest amniotic fluid pocket measures 7 cm. The amniotic fluid index (SABAS) is 14 cm. The placenta is anterior in location and is not low lying. There are Grade 2 placental changes. The cervix is not visualized. BIOMETRY: BPD: 9.3 cm: 37 weeks, 6 days HC: 33.8 cm: 38 weeks, 5 days AC: 33.4 cm: 37 weeks, 2 days FL: 7.1 cm: 36 weeks, 1 days Age by LMP: 36 weeks, 1 days. ALTHEA by LMP: 02/28/2024. age by current US: 37 weeks, 4 days. ALTHEA by current US: 02/18/2024. Estimated weight: 3155 grams, +/- 473 grams, 80 percentile. US/OB Limited With Biometrics IMPRESSION: Single live intrauterine fetus in cephalic presentation with an estimated gestational age of 37 weeks and 4 days. Electronically Signed: Jesus Bearden MD at 15:29 EDT ,
== END | disposition home or self-care (01) ==
LOC: OPUS 12:27
PROVIDERS: Referring Provider Obstetrics & Gynecology; Visit Provider Obstetrics & Gynecology
DX: O09.92 Supervision of high risk pregnancy, unspecified, second trimester (principal); Z3A.00 Weeks of gestation of pregnancy not specified
CPT/HCPCS: 76816

== ENCOUNTER → 2024-02-02 | Outpatient (CLI) | payer MEDICAID, SELFPAY | END | disposition home or self-care (01) | LOC: LABSPEC 16:44 | PROVIDERS: Referring Provider Obstetrics & Gynecology; Visit Provider Obstetrics & Gynecology | DX: O09.90 Supervision of high risk pregnancy, unspecified, unspecified trimester (principal); Z3A.00 Weeks of gestation of pregnancy not specified | CPT/HCPCS: 87077; 87081; 87186 ==

== ENCOUNTER 2024-02-16 17:24 | Inpatient (IN) | payer MEDICAID, SELFPAY ==
[2024-02-16] VITALS (12 sets, daily range): BP systolic 89–114; BP diastolic 61–74; PULSE 82–97; RESP 16–18; TEMP 36.5–36.8; O2SAT 95–97; BMI 34.5
--- NOTE | 2024-02-16 17:21 | HP.PCM.OB_ITS ---
HPI - General General Date of Admission: 02/16/24 HPI Narrative WILL QIU, is a 33 F who presents IAL 4 cm regular ctx no vb lof good fm Maternal Data Information ALTHEA Calculator Estimated Delivery Date Method Current WG Current Estimate 02/28/24 LMP (Certain) 38w 3d Other Estimates 02/28/24 Ultrasound #1 38w 3d PFSH PFS Medical History (Updated 02/16/24 @ 17:40 by Ama Asher) Abnormal uterine bleeding Anxiety Depression Hidradenitis suppurativa IUD (intrauterine device) in place Mass of axilla depression Pre-conception counseling Home Medications buspirone 10 mg tablet 10 mg PO BID see provid 06/16/23 [History Last Taken 01/16/24] sertraline 50 mg tablet (Zoloft) 150 mg PO DAILY see provider 06/16/23 [History Last Taken 02/15/24 21:00] docosahexaenoic acid 200 mg capsule ( DHA) 1 mg PO see provider 09/20/23 [History Last Taken 02/15/24 21:00] Allergy/AdvReac Type Severity Reaction Status Date / Time azithromycin Allergy Intermediate Hives Verified 02/16/24 19:31 [From Zithromax Z-Jhonatan] cefaclor [From Ceclor] Allergy Mild Hives Verified 02/16/24 19:31 clindamycin Allergy Mild Hives Verified 02/16/24 19:31 Family History Grandmother Diabetes Stomach cancer Grandfather Diabetes Aunt Breast cancer, Onset Age: 26 82 with MS Uncle Prostate cancer Surgical History S/P tonsillectomy S/P tympanoplasty Social History household members: spouse housing: house current occupational status: employed current occupation: [employer] current occupational exposures/hazards: Yes pets and animals: Yes history of recent travel: No sexually active: Yes Smoking Status: Never smoker alcohol intake: current details: occasionally - not while substance use type: does not use caffeine: Yes what type of physical activity do you participate in: weight training frequency: 3-4 times per week seatbelt use: always do you feel safe at home: Yes additional social history: spouse (boyfriend) Joey - [employer]. History 4 Elective abortions Hx Para 3 Spontaneous abortions 1 Hx # Term Pregnancies Ectopic pregnancies Hx # Pregnancies Multiple births # of living children 2 Past Pregnancies Del. Date Name GA/Weeks Outcome Route Bth Weight Infant Gen Labor Lgth Anesthesia Del Locatn Provider FOB 11/14/15 [place] (dec) live - full term [facility] 11/19/16 Michelle 38 live - full term 6#12 Female epid ural [place] 05/28/18 Robbie 39 live - full term 7 10 Female none [place] Delivery Date: 11/14/15 Last Updated by: Anya Friedman CNM oligo, iol. vaccum. 50 HR unsuccessful rescuscitation. rm 1 and 15. Delivery Date: 05/28/18 Last Updated by: Anya Friedman CNM IOL, lived an hour away pitocin Visit Details Expected Delivery Route/Plan Labor Preferences- CB/BF classes: [] labor support person: [] labor intervention preferences: pain management options preferred: [] cut cord/dad catch: [] : [] PP control planned: [] discussed possible routes of delivery and associated risks: [] special requests: [] Plans Covid status: [] Flu vaccine: [] Tdap vaccine: [] Rhogam: [] LARC form signed: [] Problem list reviewed and updated with the most current plan of care details and appropriate orders placed. Relevant counseling for the gestational age provided. Continue routine care and follow up unless otherwise noted in visit notes/problem list details OB Flowsheet Initial Weight: 162 lb Date -?-?-?-?-?-?-?-?-?-?-?-?- EGA Weight BP Urine Prot -?-?-?-?-?-?-?-?-?-?-?-?- Glucose FHR FuHt Pres Dilation -?-?-?-?-?-?-?-?-?-?-?-?- Effaced St Visit Note 07/25/23 -?-?-?-?-?-?-?-?-?-?-?-?- 8w 6d 162 lb 6 oz (+6 oz) 106/73 -?-?-?-?-?-?-?-?-?-?-?-?- 163 -?-?-?-?-?-?-?-?-?-?-?-?- LC- CRL con with LMP. desires nipt. bmi >30, hbga1c added to nob labs. on zoloft for anxiety for loss 8 years ago with son. 08/23/23 -?-?-?-?-?-?-?-?-?-?-?-?- 13w 0d 166 lb 2 oz (+4 lb 2 oz) 117/77 Negative -?-?-?-?-?-?-?-?-?-?-?-?- Negative 156 -?-?-?-?-?-?-?-?-?-?-?-?- JV- CRL consiste nt with established gestational age. doing overall very well. we disussed epidural difficulties in the past .wants to request myself for delivery due to very bad experience with loss in the past 09/20/23 -?-?-?-?-?-?-?-?-?-?-?-?- 17w 0d 170 lb 8 oz (+8 lb 8 oz) 118/72 Negative -?-?-?-?-?-?-?-?-?-?-?-?- Negative 155 -?-?-?-?-?-?-?-?-?-?-?-?- -No VB. Leticia arredondo. [facility] 10/11. Denies concerns 10/19/23 -?-?-?-?-?-?-?-?-?-?-?-?- 21w 1d 174 lb 8 oz (+12 lb 8 oz) 120/82 Negative -?-?-?-?-?-?-?-?-?-?-?-?- Negative 154 -?-?-?-?-?-?-?-?-?-?-?-?- MH-No VB, LOF. G ood FM. Nl anatomy US. Varicosity left leg-noted, nontender 11/14/23 -?-?-?-?-?-?-?-?-?-?-?-?- 24w 6d 178 lb (+16 lb) 118/68 Negative -?-?-?-?-?-?-?-?-?-?-?-?- Negative 142 -?-?-?-?-?-?-?-?-?-?-?-?- -No VB, LOF. Work in for dizzines-couple of days ago. Better today. reviewed food/fluid intake. Good Fm -No VB, LOF. Work in for dizzines-couple of days ago. Better today.No edema noted. reviewed food/fluid intake. Good Fm 12/14/23 -?-?-?-?-?-?-?-?-?-?-?-?- 29w 1d 182 lb 2 oz (+20 lb 2 oz) 99/63 Negative -?-?-?-?-?-?-?-?-?-?-?-?- Negative 145 24 -?-?-?-?-?-?-?-?-?-?-?-?- JV- no lof, vagi nal bleeding, or cramping. has headaches often. GCT pending, tdap discussed. 12/28/23 -?-?-?-?-?-?-?-?-?-?-?-?- 31w 1d 178 lb 6 oz (+16 lb 6 oz) 108/71 Negative -?-?-?-?-?-?-?-?-?-?-?-?- Negative 136 32 -?-?-?-?-?--?-?-?-?-?-?-?- JV- had some BH contractions this weekend that went away spontaneously with rest. declines tdap. larc signed and declines. 01/11/24 -?-?-?-?-?-?-?-?-?-?-?-?- 33w 1d 183 lb 2 oz (+21 lb 2 oz) 104/65 Negative -?-?-?-?-?-?-?-?-?-?-?-?- Negative 138 35 -?-?-?-?-?-?-?-?-?-?-?-?- KW- No vb/lof/ct x. good fm. Desires physician delivery for hx of trauma with births. did increase zoloft to 150mg. 01/25/24 -?-?-?-?-?-?-?-?-?-?-?-?- 35w 1d 186 lb 2 oz (+24 lb 2 oz) 105/68 Negative -?-?-?-?-?-?-?-?-?-?-?-?- Negative 120 36 -?-?-?-?-?-?-?-?-?-?-?-?- JV- no complaint s other than round ligament pain. + FM 02/02/24 -?-?-?-?-?-?-?-?-?-?-?-?- 36w 2d 184 lb (+22 lb) 107/72 -?-?-?-?-?-?-?-?-?-?-?-?- 130 37 Cephalic 1 -?-?-?-?-?-?-?-?-?-?-?-?- SM- no vb lof go od fm no regular ctx discussed IOL and previous experience. 02/06/24 -?-?-?-?-?-?-?-?-?-?-?-?- 36w 6d 186 lb 8 oz (+24 lb 8 oz) 104/71 Negative -?-?-?-?-?-?-?-?-?-?-?-?- Negative 135 37 Cephalic 2 -?-?-?-?-?-?-?-?-?-?-?-?- Sm- no vb lof go od fm irreuglar ctx 02/15/24 -?-?-?-?-?-?-?-?-?-?-?-?- 38w 1d 185 lb (+23 lb) 117/77 Negative -?-?-?-?-?-?-?-?-?-?-?-?- Negative 123 38 Cephalic 2 -?-?-?-?-?-?-?-?-?-?-?-?- 30 -2 JV- no lof , vaginal bleeding, or dec fm. passed mucous plug this week and feeling more contractions. NST FHR Rate Baby A Baseline: 140 Variability:: Moderate Accelerations:: 15 x 15 Decelerations:: None NST Reactive:: Yes FHR Category:: Category I Uterine Activity:: q3-5 ROS Constitutional Constitutional: Reports systems reviewed and no addt'l complaints, except as documented ENT HEENT: Reports systems reviewed and no addt'l complaints, except as documented Cardiovascular Cardiovascular: Reports systems reviewed and no addt'l complaints, except as documented Respiratory/Chest Respiratory/Chest: Reports systems reviewed and no addt'l complaints, except as documented Gastrointestinal Gastrointestinal: Reports systems reviewed and no addt'l complaints, except as documented and nausea; Denies abdominal pain Genitourinary Genitourinary: Reports systems reviewed and no addt'l complaints, except as documented, contractions Details: present and frequency (regular ) and movement Details: present Musculoskeletal Musculoskeletal: Reports systems reviewed and no addt'l complaints, except as documented Integumentary Integumentary: Reports as per HPI Neurologic Neurologic: Reports systems reviewed and no addt'l complaints, except as documented Endocrine Endocrinology: Reports systems reviewed and no addt'l complaints, except as documented Vital Signs Vital Signs Vital Signs: Weight Weight: 183 lb Body Mass Index (BMI) 34.5 Physical Exam Const alert, oriented x3 and healthy appearing Constitutional Narrative: uncomfortable with contractions HEENT normocephalic and moist oral mucous membranes Head and Scalp: atraumatic Neck full ROM, no lymphadenopathy, supple and thyroid normal General: trachea midline Thyroid: thyroid normal Lymph Lymphatic: no lymphadenopathy noted Chest inspection of chest normal Resp normal respiratory effort Cardio regular rate GI normal to inspection, nondistended, normoactive bowel sounds, soft to palpation and non-tender Inspection: gravid external exam normal Bimanual Exam - Vag & Uterus: uterus non-tender Manual OB Exam: estimated gestational size appropriate, presentation cephalic, dilated, effaced and station Extremity normal to inspection General Extremity: Negative for edema Skin no rashes or lesions noted Neuro deep tendon reflexes 2+ bilaterally Motor Exam: strength 5/5 throughout and clonus absent Psych mental status grossly normal Labs Labs Labs: Blood Type AB POSITIVE Antibody Screen NEGATIVE Hct 35.8 % (37-47) L Hgb 11.9 g/dL (12.0-15.0) L Obstetrics Ultrasound Syphilis Total Ab Non-reactive Rubella IgG Antibody Reactive (Nonreactive) Hep Bs Antigen Non-Reactive (Nonreactive) Hepatitis C Antibody Non-Reactive (Nonreactive) Chlamydia DNA ([facility]) Negative (Negative) N.gonorrhoeae DNA ([facility]) Negative (Negative) HIV 1&2 Antibody Non-Reactive (Nonreactive) Glucose 1 Hr 50 gm 114 mg/dL (70-140) Assessment & Plan (1) Positive GBS test: (2) Varicosities of leg: QUALIFIERS: Laterality: left Varicose vein complication: asymptomatic Qualified Code(s): I83.92 - Asymptomatic varicose veins of left lower extremity COMMENT: left. nontender (3) Obesity (BMI 30.0-34.9): COMMENT: early hbga1c. healthy weight (4) Supervision of high-risk : QUALIFIERS: Trimester: second trimester Qualified Code(s): O09.92 - Supervision of high risk , unspecified, second trimester COMMENT: PRR ALTHEA 02/28/2024 girl Charmaine PC:jonny(), Robbie bills DO NOT PLACE IN ROOM 1 OR 15 FOR DELIVERY. TRAUMATIC HISTORY OF INFANT following resuscitation. (5) : QUALIFIERS: Weeks of gestation: 38 weeks Qualified Code(s): Z3A.38 - 38 weeks gestation of COMMENT: REQUESTING PHYSICIAN DELIVERY, nipt low risk, nl anatomy consistent ALTHEA (6) PTSD (post-traumatic stress disorder): COMMENT: due to loss (7) Active labor at term: PLAN: Plan Patient presents IAL, plan expectant management for , pitocin/AROM PRN if needed. Pain management: plans epidural. GBS positive plan IV PCN. Management of any complications: vistaril PRN anxiety I have reviewed the [facility] and made any clinically relevant updates.
[2024-02-16] MEDS: 0.9% Saline Lock 10 ML Syringe IV ×2 (17:43→23:25)
[2024-02-16 17:53] LABS: Absolute Lymphocyte Count 2.85 X10^3/uL (0.83-4.51); Absolute Neutrophil Count 7.2 X10^3/uL (2.0-7.7); Basophil# 0.04 X10^3/uL; Basophil% 0.4 % (0-1); Eosinophils% 0.9 % (0-5); Hematocrit 35.8 % (37-47); Hemoglobin 11.9 g/dL (12.0-15.0); Lymphocyte # 2.85 X10^3/ul (0.83-4.51); Lymphocyte % 25.9 % (19-41); Mean Corp Hgb Conc 33.2 g/dL (32-36); Mean Corpuscular Hgb 29.5 pg (27.0-32.0); Mean Corpuscular Volume 88.8 fL (81-99); Mean Platelet Vol. 11.1 fl (6.2-12.0); Monocyte# 0.75 X10^3/uL; Monocyte% 6.8 % (0-10); NRBC Flagged by Analyzer 0 % (0-5); Neutrophil # 7.15 X10^3/uL (2.7-7.7); Platelet Count 142 K/mm3 (150-450); RBC Distribution Width CV 12.6 % (11.6-14.6); RBC Distribution Width SD 40.9 fl (35.1-43.9); Red Blood Count 4.03 M/mm3 (4.2-5.4)
[2024-02-16 18:32] LABS: Syphilis Antibodies Non-reactive
[2024-02-16] MEDS: Lactated Ringers 1,000 ML 100 ML IV (18:40)
[2024-02-16] MEDS: Penicillin G Pot 5,000,000 UNITS in 0.9% Normal Saline (100mL MB+) 100 ML 150 UNITS IV (18:41)
--- NOTE | 2024-02-16 19:33 | NURSING ---
SM requesting pt to remain on continuous EFM per elisa RN report.
[2024-02-16] MEDS: Penicillin G 3,000,000 Units 50 ML 100 UNITS IV (22:58)
[2024-02-16] MEDS: Ondansetron 4 MG/2 ML Vial IV (23:25)
[2024-02-17] VITALS (48 sets, daily range): BP systolic 88–117; BP diastolic 50–76; PULSE 65–166; RESP 16–18; TEMP 36.2–37.3; O2SAT 88–100
[2024-02-17] MEDS: hydrOXYzine PAM 25 MG Capsule PO (00:07)
[2024-02-17] MEDS: LACTATED RINGERS 500 ML 999 ML IV ×2 (01:52→03:59)
[2024-02-17] MEDS: Penicillin G 3,000,000 Units 50 ML 100 UNITS IV (03:02)
[2024-02-17] MEDS: Oxytocin 15 Units/NS 250ml 15 UNITS/250 ML IV.SOLN 2 UNITS IV (03:03)
[2024-02-17] MEDS: Lactated Ringers 1,000 ML 200 ML IV (04:00)
--- NOTE | 2024-02-17 05:11 | OP.PCM_ITS ---
Assessment & Plan (1) Active labor at term: (2) Positive GBS test: (3) Varicosities of leg: QUALIFIERS: Varicose vein complication: asymptomatic Laterality: left Qualified Code(s): I83.92 - Asymptomatic varicose veins of left lower extremity COMMENT: left. nontender (4) Obesity (BMI 30.0-34.9): COMMENT: early hbga1c. healthy weight (5) Supervision of high-risk : QUALIFIERS: Trimester: second trimester Qualified Code(s): O09.92 - Supervision of high risk , unspecified, second trimester COMMENT: PRR ALTHEA 02/28/2024 michele Montano PC:jonny(), Robbie bills DO NOT PLACE IN ROOM 1 OR 15 FOR DELIVERY. TRAUMATIC HISTORY OF INFANT following resuscitation. (6) : QUALIFIERS: Weeks of gestation: 38 weeks Qualified Code(s): Z3A.38 - 38 weeks gestation of COMMENT: REQUESTING PHYSICIAN DELIVERY, nipt low risk, nl anatomy consistent ALTHEA (7) PTSD (post-traumatic stress disorder): COMMENT: due to loss Maternal Data Information ALTHEA Calculator Estimated Delivery Date Method Current WG Current Estimate 02/28/24 LMP (Certain) 38w 3d Other Estimates 02/28/24 Ultrasound #1 38w 3d Vaginal Delivery Operative Information Date of Procedure: 02/17/24 Pre-Operative Diagnosis: see a/p diagnoses Post-Operative Diagnosis: same Surgery / Procedure Performed: Spontaneous Vaginal Delivery Type of Anesthesia: None Special Medications: none Estimated Blood Loss: 200 Fluids Replaced: crystalloid Findings Description of Procedure: Patient began pushing and delivered the head in the JOE presentation. The head was delivered atraumatically. The anterior and posterior shoulders delivered without complication followed by the rest of the infant and the was placed on the maternal abdomen. Delayed cord clamping was employed for approximately 60 seconds. Cord was clamped and cut and gentle traction was applied to the cord and the placenta delivered spontaneously immediately following it was noted to be intact with three-vessel cord. The perineum and vagina were inspected and noted to have no laceration. EBL was 200 cc. Patient and infant tolerated delivery well. Amniotic Fluid Description: Clear Placental Delivery Description: Spontaneous Placenta Disposition: [facility] Cord Vessel Description: 3 Vessels Cord Entanglement: None Delayed Cord Clamping: Yes Post Vaginal Delivery Medications Given After Delivery: IV Pitocin Episiotomy Description: None Complication Complications: None Procedures Urinary/Genital [id number]: [id number] Vaginal Delivery [facility]
--- NOTE | 2024-02-17 05:16 | DCINST_ITS ---
Discharge Instructions Diet Discharge Diet: No restrictions Activity Discharge Activity: Return to Normal Activity, May Not Drive (while taking narcotic pain medications.) and May Shower May resume sexual activity in: 4-6 weeks Dressing / Incision Call your doctor if your incision/area has: Continuous Slow Oozing, Sudden Increased Bleeding, Increased Pain/ Swelling, Increased Redness and Foul Smelling Discharge Follow Up Care Please Follow Up With: Jennifer Mills MD When: Call [phone] to make an appointment with your doctor in 6 weeks. If you had elevated blood pressure or 4th degree laceration, you will need to be seen in 2 weeks. Test Results: Test results from this visit will be discussed in further detail at your follow- up appointment, if applicable. Discharge Plan Admission Admit Date/Time: 02/16/24 17:32 Attending Provider: Jennifer Mills Primary Care Provider: Care Physician,Cathi Primary Discharge Orders/Prescriptions Prescriptions: No Action buspirone 10 mg tablet 10 mg PO BID sertraline [Zoloft] 50 mg tablet 150 mg PO DAILY DHA 200 mg capsule 1 mg PO Referrals / Follow Up: Care Physician,Cathi Primary [Primary Care Provider] - Disposition Disposition (needs filled in before D/C Order can be placed): Home, Self Care
[2024-02-17] MEDS: Oxytocin 15 Units/NS 250ml 15 UNITS/250 ML IV.SOLN 83 UNITS IV (05:28)
[2024-02-17] MEDS: Naproxen 500 MG Tablet PO ×2 (08:38→17:12)
[2024-02-17] MEDS: Sertraline 50 MG Tablet 150 MG PO (10:00)
[2024-02-17] MEDS: Acetaminophen 500 MG Tablet 1000 MG PO (13:14)
[2024-02-18 01:50] VITALS: BP 106/64; PULSE 70; RESP 16; TEMP 36.6; O2SAT 97
[2024-02-18 03:20] VITALS: BP 98/57; PULSE 65; RESP 16; TEMP 36.6; O2SAT 98
[2024-02-18 07:46] VITALS: BP 100/72; PULSE 74; RESP 16; TEMP 36.6; O2SAT 96
--- NOTE | 2024-02-18 07:58 | PCM.PN.OB ---
Subjective Subjective Patient doing well without complaints. Tolerating PO. Ambulating and voiding without difficulty. Feeding well. Denies chest pain, shortness of breath, calf pain/swelling, fevers, chills, lightheadedness. Objective Data Objective Data Vital Signs: Vital Signs Temp Pulse Resp BP Pulse Ox O2 Del Method 97.9 F 74 16 100/72 96 Room Air 02/18/24 07:46 02/18/24 07:46 02/18/24 07:46 02/18/24 07:46 02/18/24 07:46 02/18/24 07:46 Oxygen Delivery Method Room Air Weight: 183 lb Body Mass Index (BMI) 34.5 Intake & Output: Intake and Output for Last 24 Hours 02/16/24 02/17/24 02/18/24 23:59 23:59 23:59 Intake Total 272.5 / 272.5 2164.80 / 2164.80 Output Total 2550 / 2550 Balance 271.5 / 271.5 -385.20 / -385.20 Lab / Micro Data 02/16/24 17:43 Physical Exam Const alert and oriented x3 Neck full ROM Resp normal respiratory effort and normal air movement Cardio regular rate and regular rhythm GI normal to inspection, nondistended, normoactive bowel sounds Uterus Palpation: uterus fundus firm Extremity normal to inspection Skin no rashes or lesions noted Psych mental status grossly normal Assessment & Plan (1) Vaginal delivery: COMMENT: JADE PHELPS IAL 38 girl Charmaine PLAN: s/p PPD # 1 1. routine post delivery care 2. breast feeding- support given 3. rh positive 4. rubella immune 5. plan d/c home today
[2024-02-18] MEDS: Sertraline 50 MG Tablet 150 MG PO (11:03)
[2024-02-18 13:47] VITALS: BP 108/77; PULSE 67; RESP 18; TEMP 36.4; O2SAT 98
--- NOTE | 2024-02-22 17:30 | NURSING ---
Follow up phone call made, no answer, left voicemail
== END 2024-02-18 13:52 | disposition home or self-care (01) | DRG 560 ==
LOC: WPOUT 02-17 09:59 → WP 02-17 09:59
PROVIDERS: Admitting Provider Obstetrics & Gynecology; Referring Provider Obstetrics & Gynecology; Visit Provider Obstetrics & Gynecology
DX: O99.824 Streptococcus B carrier state complicating childbirth (principal); Z37.0 Single live birth; O99.344 Other mental disorders complicating childbirth; F43.12 Post-traumatic stress disorder, chronic; I83.92 Asymptomatic varicose veins of left lower extremity; O99.214 Obesity complicating childbirth; O22.03 Varicose veins of lower extremity in pregnancy, third trimester; Z3A.38 38 weeks gestation of pregnancy; Z79.899 Other long term (current) drug therapy; Z87.59 Personal history of other complications of pregnancy, childbirth and the puerperium
CPT/HCPCS: 59025; 59050; 85025; 86780; 86850; 86900; 86901; 99221; J7120; A4216; G0378; J2405

== ENCOUNTER → 2024-04-25 | Outpatient (CLI) | payer MEDICAID, SELFPAY ==
--- NOTE | 2024-04-25 10:50 | US_ITS ---
STUDY: ULTRASOUND BREAST - LEFT REASON FOR EXAM: Female, 34 years old. Assessment of the left axilla. TECHNIQUE: Axial and longitudinal images of the LEFT breast were performed with a high resolution ultrasound transducer. # OF IMAGES: 24 COMPARISON: None. FINDINGS: LEFT Breast: Imaging of the left axillary region was obtained. There is evidence of breast tissue in the axillary region. US/Breast Limited Unilateral IMPRESSION: Breast tissue is noted in the left axilla. ASSESSMENT CATEGORY: BIRADS Category 2: Benign. A letter regarding these results will be sent to the patient by the facility within 30 days. Electronically Signed: Paul Castro MD at 13:07 EDT ,
== END | disposition home or self-care (01) ==
LOC: OPUS 10:50
PROVIDERS: Referring Provider Surgery; Visit Provider Surgery
DX: Q83.1 Accessory breast (principal)
CPT/HCPCS: 76642

== ENCOUNTER 2024-11-15 22:21 | Emergency (ER) | payer MEDICAID, SELFPAY ==
[2024-11-15 22:22] VITALS: BP 113/71; PULSE 106; RESP 16; TEMP 36.6; O2SAT 97; BMI 27.8
[2024-11-15 22:23] VITALS: BP 113/71; PULSE 106; RESP 16; TEMP 36.6; O2SAT 97
[2024-11-15 23:23] VITALS: BP 113/69; PULSE 103; RESP 18; TEMP 36.9; O2SAT 97
--- NOTE | 2024-11-15 23:44 | EDS_ITS ---
HPI History of Present Illness Chief Complaint: Other, Pain/Inj Informant: patient Narrative Narrative: 9 months and breast-feeding. Yesterday increased left breast pain myalgias fevers. No cough no vomiting or diarrhea no urinary symptoms. History of similar in the past with mastitis. Allergic to Ceclor however is tolerated Augmentin in the past. Prior similar symptoms: Yes PFSH PFSH Medical History Wears glasses Alcohol use Arthritis Syncope Non-smoker History of echocardiogram Vaginal delivery depression Depression Anxiety Pre-conception counseling Hidradenitis suppurativa IUD (intrauterine device) in place Abnormal uterine bleeding Mass of axilla Home Medications ?Medication ?Instructions ?Recorded ?Last Taken ?Type buspirone 5 mg tablet 5 mg PO DAILY 10/26/24 Unkno wn History sertraline 100 mg tablet 200 mg PO QHS 11/13/24 Unkno wn History amoxicillin 875 mg-potassium 875 mg PO Q12H #20 TABLET S 11/15/24 Unknown Rx clavulanate 125 mg tablet Allergy/AdvReac Type Severity Reaction Status Date / Time azithromycin (From Zithromax Allergy Intermediate Hives Verified 11/15/24 22:24 Z-Jhonatan) cefaclor (From Ceclor) Allergy Mild Hives Verified 11/15/24 22:24 clindamycin Allergy Mild Hives Verified 11/15/24 22:24 Family History Grandmother Diabetes Stomach cancer Grandfather Diabetes Aunt Breast cancer, Onset Age: 26 82 with MS Uncle Prostate cancer Surgical History S/P tympanoplasty S/P tonsillectomy Social History household members: spouse housing: house current occupational status: employed 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 ROS ROS ED Constitutional Constitutional ED: Reports fever(s); Denies chills or sweats ENT ENT ED: Denies sore throat Cardiovascular Cardiovascular: Denies chest pain, leg edema, palpitations or racing heartbeat Respiratory/Chest Respiratory/Chest: Denies cough, dyspnea or dyspnea on exertion Gastrointestinal Gastrointestinal: Denies abdominal pain, diarrhea, nausea or vomiting Genitourinary Genitourinary ED: Denies dysuria, hematuria or urinary frequency Musculoskeletal Musculoskeletal: Reports myalgias; Denies back pain, extremity pain or neck pain Integumentary Denies rash or wounds Neurologic Neurologic: Denies headache(s), paresthesias or weakness EXAM Physical Exam Const Vital Signs: 11/15/24 22:22 11/15/24 22:23 11/15/24 22:31 Temperature 98 F 98 F Temperature Source Oral Oral Pulse Rate 106 H 106 H Respiratory Rate 16 16 Respiratory Pattern Normal Blood Pressure 113/71 113/71 Blood Pressure Mean 85 85 Pulse Ox 97 97 Oxygen Delivery Method Room Air Room Air 11/15/24 23:23 Temperature 98.5 F Temperature Source Oral Pulse Rate 103 H Respiratory Rate 18 Respiratory Pattern Blood Pressure 113/69 Blood Pressure Mean 83 Pulse Ox 97 Oxygen Delivery Method Room Air Positive well nourished and well developed General Appearance ED: well developed and NAD HEENT Reports moist mucous membranes normocephalic and atraumatic Eyes General Eye ED: Yes normal appearance of both eyes Neck full ROM Chest Wall Chest Narrative: Nursing supervisor tile and mottle for breast exam. Right side normal nontender. Left side there is erythema inferomedial aspect breasts with tenderness no crepitus. No areolar involvement. Chest: tenderness Resp normal respiratory effort and normal air movement Effort and Inspection: symmetric chest movement; Negative for respiratory distress Cardio regular rate, regular rhythm and no murmurs Peripheral Pulses: pulses 2+ throughout GI normal to inspection, nondistended, normoactive bowel sounds and non-tender Palpation: Negative for guarding or rebound tenderness present Extremity normal to inspection General Extremety ED: Negative for edema or tenderness General Extremity: Negative for edema Neuro oriented x3 and no sensory deficits noted Sensorium / Orientation: awake and alert Skin no rashes or lesions noted and no wounds MDM MDM MDM Narrative Medical decision making narrative: Interventions / MDM: Differential diagnosis: Mastitis Diagnosis considered but do not suspect: N/A My EKG interpretation: N/A Imaging independently reviewed and interpreted by myself: N/A External documents reviewed: N/A Test considered but not ordered:N/A ED course: Vital stable from the ED. Exam redness inferior aspect of the breast there is no areola involvement. She reports similar symptoms with mastitis in same area in the past. Time a year with illnesses offered viral testing swabs however she declined. Will start her on Augmentin for mastitis. She will continue Delroy Motrin as needed. All questions were answered. Re-evaluation: stable Disposition discussed with patient/family/significant other: Patient Case discussed with consulting clinician: N/A This note was generated with [employer] dictation software. It may contain incorrect words, spelling, and punctuation that were not noted in checking the note before signing. Discharge Plan Triage Chief Complaint: Other, Pain/Inj ED Provider: Bob Lam Dx/Rx/DC Orders Clinical Impression: Mastitis, Breast pain, left Instructions: ED Mastitis Prescriptions: New amoxicillin-pot clavulanate 875-125 mg tablet 875 mg PO Q12H Qty: 20 0RF No Action buspirone 5 mg tablet 5 mg PO DAILY sertraline 100 mg tablet 200 mg PO QHS Patient Comments: Take 2 tablet (200 mg) by mouth daily Primary Care Provider: Care Physician,No Primary Referrals: Care Physician,No Primary [Primary Care Provider] - Activity Restrictions/Additional Instructions: Take and finish antibiotic as prescribed. Continue Tylenol or Motrin as needed. Print Language: Kyrgyz Disposition Disposition: Home, Self Care
[2024-11-15 23:46] VITALS: BP 108/79; PULSE 89; RESP 16; TEMP 37.1; O2SAT 100
[2024-11-15] MEDS: Amox/Clavulanate 875 MG Tablet PO (23:49)
== END 2024-11-15 23:51 | disposition home or self-care (01) ==
PROVIDERS: Emergency Provider Emergency Medicine; Visit Provider Emergency Medicine
DX: N61.0 Mastitis without abscess (principal)
CPT/HCPCS: 99283

== ENCOUNTER 2024-11-27 09:19 | Day surgery (SDC) | payer MEDICAID, SELFPAY ==
[2024-11-27] VITALS (9 sets, daily range): BP systolic 88–109; BP diastolic 40–69; PULSE 83–105; RESP 16–18; TEMP 36.2–37.3; O2SAT 94–99; BMI 26.6
--- NOTE | 2024-11-27 | FALS_PTH ---
PATIENT: WILL QIU [place] [facility] [place][id number] AGE/SX: 34/F ROOM: RE11/27/[address]: Dr. Sofia Lomeli DO : 1990 BED: DIS: 11/27/2024 SPEC #: [id number] RECD: 11/27/24 13:01 STATUS: JASON JUSTICE #: [id number] [place]: 11/27/24 00:[address]: Sofia Lomeli DEPT: SURGICAL PATHOLOGY RECD BY: Darell Liriano ENTERED: 11/27/24 13:01 SP TYPE: FALL TUBES OTHR DR: No Primary Care Phys Tissues: Fallopian tube Procedures: Surgery Specimen Level II HEADER OPERATION: Laparoscopic salpingectomy PRE-OP DIAGNOSIS: Sterilization consult TISSUE SUBMITTED: Bilateral fallopian tubes MICROSCOPIC DIAGNOSIS Bilateral fallopian tubes, salpingectomy: Bilateral fallopian tubes, no pathologic diagnosis. SJ: 11/28/2024 MICROSCOPIC DESCRIPTION Slides are reviewed. GROSS DESCRIPTION Received in fixative is one container labeled with the patient's name and designated bilateral fallopian tubes. The specimen consists of bilateral fallopian tubes including fimbrial ends measuring 7.5 cm in length and 0.5 cm in diameter and 7.5 cm in length and 0.5 cm in diameter. The fallopian tubes are not identified as right or left. Sections reveal unremarkable cut surfaces. Marble Machine Tender sections are submitted in two cassettes with each cassette containing one fallopian tube. / SHALOM: 11/27/2024 TC:4 CPT: 62848 x2
--- NOTE | 2024-11-27 09:33 | PCM.HP.BLA ---
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 Required: No Is patient in pain?: No Allergies azithromycin (From Zithromax Z-Jhonatan) Allergy (Intermediate, Verified 10/26/24 14:45) Hivescefaclor (From Ceclor) Allergy (Mild, Verified 10/26/24 14:45) Hivesclindamycin Allergy (Mild, Verified 10/26/24 14:45) Hives Medications ?Medication ?Instructions ?Recorded ?Confirmed ?Type sertraline 50 mg tablet (Zoloft) 150 mg PO DAILY see provider 06/16/23 10/26/24 History buspirone 5 mg tablet 5 mg PO BID 10/26/24 10/26/24 History Post menopausal: No Patient : No : No PFSH Medical History Vaginal delivery depression Depression Anxiety Pre-conception counseling Hidradenitis suppurativa IUD (intrauterine device) in place Abnormal uterine bleeding Mass of axilla Surgical History S/P tympanoplasty S/P tonsillectomy Family History Grandmother Diabetes Stomach cancerGrandfather DiabetesAunt Breast cancer, Onset Age: 26 82 with MSUncle Prostate cancer Social History household members: spouse housing: house current occupational status: employed current occupation: [employer] current occupational exposures/hazards: Yes pets and animals: Yes history of recent travel: No sexually active: Yes Smoking Status: Never smoker alcohol intake: current details: occasionally - not while substance use type: does not use caffeine: Yes what type of physical activity do you participate in: weight training frequency: 3-4 times per week seatbelt use: always do you feel safe at home: Yes additional social history: spouse (boyfriend) [employer]. HPI BS title 19 needs signed Details: WILL QIU is a 34 year old who presents for pre-operative exam for a scheduled laparoscopic bilateral salpingectomy. Title 19 to be signed today. History 5 Elective abortions Hx Para 4 Spontaneous abortions 1 Hx # Term Pregnancies 4 Ectopic pregnancies Hx # Pregnancies Multiple births # of living children 3 Past Pregnancies Del. Date Name GA/Weeks Outcome Route Bth Weight Infant Gen Labor Lgth Anesthesia Del Locatn Provider FOB 11/14/15 Jacob (dec) live - full term [facility] 11/19/16 Michelle 38 live - full term 6#12 [facility] 05/28/18 Robbie 39 live - full term 7 10 [facility] 02/17/24 Charmaine 38 live - full term 7lbs 6oz Female [facility] Delivery Date: 11/14/15 Last Updated by: Anya Friedman CNM oligo, iol. vaccum. 50 HR unsuccessful rescuscitation. rm 1 and 15. Delivery Date: 05/28/18 Last Updated by: Anya Friedman CNM IOL, lived an hour away pitocin ROS Const ROS Unobtainable: All systems reviewed & are unremarkable except as noted in H Resp Resp: Reports system reviewed and no additional complaints, except as documented; Denies cough GI GI: Reports as per HPI Psych Psych: Reports system reviewed and no additional complaints, except as documented Exam Const General: cooperative, healthy appearing, comfortable and no acute distress Resp Effort & Inspection: normal respiratory effort Skin General: no rashes or lesions noted Psych Appearance: grossly normal Speech and Movement: speech and movement normal Coding Level of Care Code Off vis,est,level 4 Diagnoses Sterilization consult Z30.09 Assessment and Plan Assessment and Plan (1) Sterilization consult: Status: Acute Plan: After discussing the patient's diagnosis and treatment plan options, patient wishes to proceed with surgical management. I have discussed with the patient the risks, benefits, and alternatives of the procedure which include but are not limited to risks of anesthesia, bleeding, infection, possible damage to bowel, bladder, or surrounding vasculature which could lead to additional surgery to evaluate any complications. Patient agrees to procedure and wishes to proceed. ACOG/uptodate references given for additional information regarding procedure. plan laparocsopic bs
[2024-11-27 09:47] LABS: Internal QC Validated? YES +Cl - CLEAR BKGD; Pregnancy, Urine Negative Negative
[2024-11-27 09:50] LABS: Mean Corp Hgb Conc 33.3 g/dL (32-36); Mean Corpuscular Hgb 29.1 pg (27.0-32.0); Mean Corpuscular Volume 87.3 fL (81-99); Mean Platelet Vol. 9.9 fl (6.2-12.0); Platelet Count 212 K/mm3 (150-450); RBC Distribution Width CV 11.9 % (11.6-14.6); RBC Distribution Width SD 38.1 fl (35.1-43.9); Red Blood Count 4.81 M/mm3 (4.2-5.4); White Blood Count 7.2 K/mm3 (4.4-11.0)
--- NOTE | 2024-11-27 09:57 | PRE.ANES_ITS ---
ASA Classification* ASA Classification ASA Classification: 2 Assessment & Plan Anesthesia* Anesthesia Assessment Anesthesia Assessment: Discussed sedation and/or anesthesia options, risks, benefits, and alternatives with patient/parents/legal guardian/POA. Questions invited. The patient/parents/legal guardian/POA seems to understand and agrees to proceed with anesthesia plan. Reviewed the physical assessment, medical history, allergy history and patient home medications list prior to surgery/procedure/anesthetic and documented any changes. Performed airway and anesthesia risk assessments. Anesthesia Type Anesthesia Type: General (Consider GlideScope.) History Source History Obtained from:: Patient and Chart Anesthesia Focused Assessment* Temperature: 97.5 F Pulse Rate: 83 Blood Pressure: 109/69 Respiratory Rate: 18 Pulse Ox: 99 Oxygen Delivery Method: Room Air Airway Assessment Mouth opens: 2 cm (Patient is mouth opening is limited by TMJ on the left.) Mallampati Score: IV Teeth Condition: Intact Neck Range of motion (ROM): Full ROM Focused Labs Anesthesia Preop lab: CBC WBC 7.2 K/mm3 (4.4-11.0) 11/27/24 09:40 11/27/24 RBC 4.81 M/mm3 (4.2-5.4) 11/27/24 09:40 11/27/24 Hgb 14.0 g/dL (12.0-15.0) 11/27/24 09:40 11/27/24 Hct 42.0 % (37-47) 11/27/24 09:40 11/27/24 Plt Count 212 K/mm3 (150-450) 11/27/24 09:40 11/27/24 CHEMISTRY TSH 2.05 uIU/mL (0.358-3.74) 03/10/23 14:52 COAG HCG, Quant 162 mIU/mL (<9 non-preg) H 03/28/16 14:45 03/17 12/02 Urine Test Negative Negative 11/27/24 09:30 11/27/24 Pre-Assessment Diagnosis/Proposed Procedure Planned Operative Procedure(s): (B) Laparoscopic, Salpingectomy Anesthesia History 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 When Was Last Pacemaker Check QUESTION #4 FULL TEXT: You/Your Family Experience fever (hyperthermia) with Anesthesia Last Oral Intake Last Oral intake: Last Oral Intake NPO since 21:00 11/27/24 09:39 Meds taken in AM with sips of No 11/27/24 09:39 water? Meds patient instructed to take am of surgery PONV PONV - dinkey engine operator: PONV - dinkey engine operator Female Yes 11/13/24 14:20 HX of Motion Sickness Yes 11/13/24 14:20 HX of N/V After Surgery Yes 11/13/24 14:20 Non-Smoker Yes 11/13/24 14:20 Duration of Surgery greater No 11/13/24 14:20 than 60 minutes Number of Risk Factors 4 11/13/24 14:20 PONV Score Severe Risk 11/13/24 14:20 Height & Weight Height & Weight: Anesthesia: Height & Weight Height 5 ft 1 in 11/27/24 09:39 Weight: 64 kg 11/27/24 09:39 Body Mass Index (BMI) 26.6 11/27/24 09:39 Respiratory Assessment Respiratory Assessment - dinkey engine operator: Respiratory Tract Infection Hx - dinkey engine operator Hx Respiratory Tract Infection No 11/13/24 14:20 Any additional information?: Yes Hx Respiratory Tract Infection: Yes (Patient has some lingering sinus congestion.) STOP Sleep Apnea STOP Sleep Apnea - dinkey engine operator: STOP Sleep Apnea - dinkey engine operator Hx Hypertension No 11/13/24 14:20 Hx Sleep Apnea No 11/13/24 14:20 CPAP BIPAP Do you snore loudly (louder No 11/13/24 14:20 than talking or can be heard Do you often feel tired/ No 11/13/24 14:20 fatigued/ sleepy during daytime? Has anyone observed you stop No 11/13/24 14:20 breathing during sleep? STOP Results Negative 11/13/24 14:20 QUESTION #5 FULL TEXT : Do you snore loudly (louder than talking or can be heard through closed doors)? Tobacco Use History Tobacco Use History - dinkey engine operator: Tobacco Use History - dinkey engine operator Tobacco Use Smoking Status Never smoker 11/15/24 22:30 Hx Tobacco Use No 11/13/24 14:20 Years Smoking Packs Smoked per Day Smoking Cessation Date was within the last 15 years Hx Smoking Cessation Date Hx Smoking Cessation Counseling Hematologic Medial History Hematologic Hx - dinkey engine operator: Hematologic Medical Hx - finishing machine operator automatic Hx of Blood Transfusion No 11/13/24 14:20 Hx of Transfusion in last 3 No 11/13/24 14:20 Months Date of Last Transfusion (if within last 3 months) Ever experience any problems No 11/13/24 14:20 with transfusion(s)? Specify any problems Hx of Preganancy in last 3 No 11/13/24 14:20 Months Nurse Filling Out Transfusion VCHRISTIN 11/13/24 14:20 & Questions: Date: 11/13/24 11/13/24 14:20 Time: 14:21 11/13/24 14:20 Patient unable to answer at this time (ie. confused, unrespo /Reproduction History /Reproductive History - dinkey engine operator: /Reproductive Hx- dinkey engine operator Hx Now No 11/13/24 14:20 Gestational Age (in weeks): EDC: Hx Hx Para Hx Section SAB Yes 11/15/24 22:22 Active Medications Active Medications: Current Medications Generic Name Dose Route Start Last Admin Trade Name Freq PRN Reason Stop Dose Admin Sodium Chloride 1,000 mls @ 15 mls/hr 11/27/24 09:30 IV 12/02/24 22:49 .Q48H [facility] Protocol PFS Medical History (Updated 11/27/24 @ 10:[address] Martin Banks MD) Wears glasses Alcohol use Arthritis Syncope Non-smoker History of echocardiogram Vaginal delivery depression Depression Anxiety Pre-conception counseling Hidradenitis suppurativa IUD (intrauterine device) in place Abnormal uterine bleeding Mass of axilla Home Medications ?Medication ?Instructions ?Recorded ?Last Taken ?Type buspirone 5 mg tablet 5 mg PO DAILY 10/26/2411/26 History sertraline 100 mg tablet 200 mg PO QHS 11/13/2411/26 21:00 History Allergy/AdvReac Type Severity Reaction Status Date / Time azithromycin (From Zithromax Allergy Intermediate Hives Verified 11/27/24 09:35 Z-Jhonatan) cefaclor (From Ceclor) Allergy Mild Hives Verified 11/27/24 09:35 clindamycin Allergy Mild Hives Verified 11/27/24 09:35 Family History Grandmother Diabetes Stomach cancer Grandfather Diabetes Aunt Breast cancer, Onset Age: 26 82 with MS Uncle Prostate cancer Surgical History S/P tympanoplasty S/P tonsillectomy Social History household members: spouse housing: house current occupational status: employed current occupation: [employer] current occupational exposures/hazards: Yes pets and animals: Yes history of recent travel: No sexually active: Yes Smoking Status: Never smoker alcohol intake: current details: occasionally - not while substance use type: does not use caffeine: Yes what type of physical activity do you participate in: weight training frequency: 3-4 times per week seatbelt use: always do you feel safe at home: Yes additional social history: spouse (boyfriend) [place]. Review of Systems (Anesthesia) ROS Narrative System reviewed and no additional complaints, except as documented.
--- NOTE | 2024-11-27 10:08 | DCINST_ITS ---
Discharge Instructions Diet Discharge Diet: No restrictions DC O2, CPAP, BIPAP needs Home O2 Discharge instructions: No Dressing / Incision Discharge Activity: Return to Normal Activity, May Not Drive (for two weeks or while taking narcotic pain medications.), May Shower and May Take a Tub Bath (in 7 days) May resume sexual activity in: 1 week Weight Bearing Status: Full weight bearing Dressing / Incision Call your doctor if you observe: Using more than 1 pad per hour, Shortness of breath, Chest pain and Uncontrolled pain Suture Line Care: Avoid Pulling/Pushing and Avoid Pinching/Bending Remove Dressing in: 1 week (if present) Cleanse incision/area with: Soap & Water and Keep Dressing Clean & Dry Follow Up Care Please Follow Up With: Sofia Lomeli DO When: Call to make an appointment with your doctor for a follow up incision check in 1-2 weeks. Test Results: Test results from this visit will be discussed in further detail at your follow- up appointment, if applicable. Discharge Plan Admission Primary Reason for Your Visit: laparoscopic bilateral salpingectomy (removal of fallopian tubes) Attending Provider: Sofia Lomeli Primary Care Provider: Care Cathi Pearce Primary Instructions Print Language: Serbian Discharge Orders/Prescriptions Prescriptions: New oxycodone-acetaminophen [Percocet] 5-325 mg tablet 1 - 2 tab PO Q4H PRN (Reason: pain) 7 Days Qty: 10 0RF Rx Instructions: 1-2 tabs q 4 hrs as needed for pain ibuprofen 800 mg tablet 800 mg PO Q8H PRN (Reason: pain) Qty: 30 0RF Continued buspirone 5 mg tablet 5 mg PO DAILY sertraline 100 mg tablet 200 mg PO QHS Patient Comments: Take 2 tablet (200 mg) by mouth daily Referrals / Follow Up: Care Physician,Cathi Primary [Primary Care Provider] - Disposition Disposition (needs filled in before D/C Order can be placed): Home, Self Care
[2024-11-27] MEDS: Bupivacaine 0.25% 30 ML Vial (11:02)
--- NOTE | 2024-11-27 11:04 | PCM.OPRPT ---
Problems Associated Problem List Diagnoses (1) Admission for sterilization: Multi Select Codes Urinary/Genital Urinary/Genital CPT Codes: 87037 Laproscopic BS/O Operative Report (Standard) Operative Information Date of Procedure: 11/27/24 Pre-Operative Diagnosis: desires permanent sterilization Post-Operative Diagnosis: desires permanent sterilization Surgery/Procedure Performed: laparoscopic bilateral salpingectomy thermometer tester: Yes Power Plant Operations Manager: Juan C Schaefer Tasks completed by financial legal assistant: Closing and Other (navigation of camera ) Additional assistant press operator offset?: No Type of Anesthesia: General RN Documented Start/Stop Times: Operation Date: 11/27/24 10:40 Case Time Into Pre-Op 11/27/24 09:26 Out of Pre-Op 11/27/24 10:23 Anesthesia Start 11/27/24 10:27 Into Room 11/27/24 10:27 Procedure Start 11/27/24 10:48 Procedure End 11/27/24 11:06 Anesthesia End 11/27/24 11:17 Out of Room 11/27/24 11:17 Into Recovery 11/27/24 11:20 Out of Recovery 11/27/24 11:57 Into Phase II Recovery 11/27/24 11:58 Out of Phase II 11/27/24 12:43 Procedure Start Time: 10:27 Procedure Stop Time: 11:06 Select all DRAINS/GRAFTS/IMPLANTS that apply: None Estimated Blood Loss: 10cc Specimen collected: Yes Description of specimen(s) removed: bilateral fallopian tubes Description of surgery: Patient was taken in the operating room and was placed under general anesthesia was prepped and draped in normal sterile fashion in the dorsal lithotomy position. Bladder was drained of clear urine and SCDs were on preoperatively. Uterus was sounded and a uterine manipulator was placed after dilating. Attention was then paid to the abdominal portion of the procedure and the umbilicus was elevated with towel clamps and injected with Marcaine and after a 5 mm incision was made and the 5 mm optical trocar was placed under direct visualization. CO2 gas was inflated in the abdomen. A left lower quadrant 5 mm port and a 5 mm port suprapubically were placed under direct visualization. Uterus was well visualized and bilateral fallopian tubes identified and bilateral tubes were elevated and transecting across the mesosalpinx and the attachment to the uterine corpus bilaterally the tubes were removed without complication. Excellent hemostasis was noted. Fallopian tubes were removed through the lower port sites without complication. Liver and upper abdomen were visualized notably within normal limits and no other gross abnormalities were seen in the abdomen. All instruments removed from the abdomen after gas was desufflated. Port sites were closed with 3-0 Monocryl Steri's and op sites were applied. All instruments removed from the vagina and patient was awoken and taken recovery in stable condition. Surgical Findings: normal abdomen and pelvic structures. Complications Complications: No Admit VTE Documentation VTE Present on Admission: No VTE Mechan Device Prophylaxis: [facility] [place]'s VTE Pharm Prophylaxis ordered?: No
--- NOTE | 2024-11-27 11:23 | PCM.POST.ANE ---
Anesthesia: Postop Eval I Current Vital Signs Temperature: 97.3 F Pulse Rate: 103 Blood Pressure: 99/65 Respiratory Rate: 16 Pulse Ox: 97 Oxygen Delivery Method: Room Air Assessment Airway patent: Yes Spontaneous unlabored respirations: Yes Mental status: Awake nausea: No Vomiting: No Anesthesia Complication: No Fluid Hydration Crystalloid volume administer (ml): 800 Total IV fluid infused: 800 Progress Note Anesthesia document: Postop Eval 1 completed: Yes
--- NOTE | 2024-11-27 13:17 | POSTOPAN2_ITS ---
Anesthesia Postop Eval I Sum Postop Eval Completion status Anesthesia document: Postop Eval 1 completed: Yes Anesthesia Postop Eval I Summary Anesthesia Postop Eval I Summary: Anesthesia Postop Eval I: Assessment Summary Airway patent Yes 11/27/24 11:24 CASE MONITOR.APAT Spontaneous unlabored Yes 11/27/24 11:24 CASE MONITOR.APAT respirations Mental status Awake 11/27/24 11:24 CASE MONITOR.APAT nausea No 11/27/24 11:24 CASE MONITOR.APAT Vomiting No 11/27/24 11:24 CASE MONITOR.APAT Anesthesia Postop Eval I: Fluid Summary Crystalloid volume administer 800 11/27/24 11:24 CASE MONITOR.APAT (ml) Colloids volume administered ( ml) Blood Product volume administered (ml) Total IV fluid infused 800 11/27/24 11:24 CASE MONITOR.APAT Anesthesia Postop Eval I: Summary Notes Anesthesia Complication No 11/27/24 11:24 CASE MONITOR.APAT Anesthesia Complication Comment: Post-operative progress note Anesthesia: Postop Eval II Evaluation Mental status: Awake and Calm Pain Level: 1 nausea: No Vomiting: No Complications Anesthesia Complication: No
--- NOTE | 2024-11-27 13:17 | PCM.POSTANE2 ---
Anesthesia Postop Eval I Sum Postop Eval Completion status Anesthesia document: Postop Eval 1 completed: Yes Anesthesia Postop Eval I Summary Anesthesia Postop Eval I Summary: Anesthesia Postop Eval I: Assessment Summary Airway patent Yes 11/27/24 11:24 VP [employer].APAT Spontaneous unlabored Yes 11/27/24 11:24 VP [employer].APAT respirations Mental status Awake 11/27/24 11:24 VP [employer].APAT nausea No 11/27/24 11:24 VP [employer].APAT Vomiting No 11/27/24 11:24 VP [employer].APAT Anesthesia Postop Eval I: Fluid Summary Crystalloid volume administer 800 11/27/24 11:24 VP [employer].APAT (ml) Colloids volume administered ( ml) Blood Product volume administered (ml) Total IV fluid infused 800 11/27/24 11:24 VP [employer].APAT Anesthesia Postop Eval I: Summary Notes Anesthesia Complication No 11/27/24 11:24 VP [employer].APAT Anesthesia Complication Comment: Post-operative progress note Anesthesia: Postop Eval II Evaluation Mental status: Awake and Calm Pain Level: 1 nausea: No Vomiting: No Complications Anesthesia Complication: No
== END 2024-11-27 12:44 | disposition home or self-care (01) ==
LOC: SDC 09:22 → AC 09:23
PROVIDERS: Referring Provider Obstetrics & Gynecology; Visit Provider Obstetrics & Gynecology
PROC: (CPT 58661; principal; 2024-11-27 10:25)
DX: Z30.2 Encounter for sterilization (principal); F32.A Depression, unspecified; F41.9 Anxiety disorder, unspecified; Z79.899 Other long term (current) drug therapy
CPT/HCPCS: 58661; 00840; 81025; 85027; 86850; 86900; 86901; 88302; A4216; J2405